=== PATIENT | male | born 1955 | race Caucasian/White ===

== ENCOUNTER 2023-08-06 10:47 | Inpatient (IN) ==
--- OUTSIDE RECORDS SUMMARY | 2023-08-06 10:51 | External Medical Summary | Summary of Care ---
Author Name Unknown Organization [facility] Address [address] [place] [address] Phone [phone] Care Team Providers Care Poly Area Supervisor Name Role Phone Kofi Newsome MD Primary Care Provider [phone] Reason for Visit * Reason Onset Date Comments Medication Refill 06/22/2023 Encounter Details Date Type Department Care Team (Late st Contact Info) Description 06/22/2023 Refill [facility] [address] [place] [address] Kofi Newsome MD [address] [place] [address] Pain, dental Allergies No known active allergiesdocumented as of this encounter (statuses as of 06/23/2023) Medications Medication Sig Dispensed Refills Start Date End Date Status Omeprazole 20 MG Oral Capsule Delayed Release (PriLOSEC) Take 1 Capsule by mouth in the morning and 1 Capsule before bedtime. 0 Active Aspirin 81 MG Oral Tablet Delayed Release Take 1 Tablet by mouth in the morning. 0 Active Fluticasone Propionate 50 MCG/ACT Nasal Suspension Administer 1 [place] into nostril in the morning. 0 Active Zinc 50 MG Oral Tablet Take 1 Tablet by mouth in the morning. 0 Active Calcium 600 MG Oral Tablet Take 1 Tablet by mouth in the morning and 1 Tablet at noon and 1 Tablet in the evening. Take with meals. 0 Active amLODIPine Besylate 5 MG Oral Tablet (Norvasc) Take 1 Tablet by mouth in the morning. 90 Tablet 1 01/10/2023 Active Atorvastatin Calcium 80 MG Oral Tablet (Lipitor) Take 1 Tablet by mouth in the morning. 90 Tablet 1 01/10/2023 Active Chlorthalidone 50 MG Oral Tablet (Hygroton) Take 1 Tablet by mouth in the morning. 90 Tablet 1 01/10/2023 Active Magnesium 500 MG Oral Capsule Take 1 Capsule by mouth in the morning. 90 Capsule 1 01/10/2023 Active Potassium Chloride ER 10 MEQ Oral Tablet Extended Release Take 1 Tablet by mouth in the morning. 90 Tablet 1 01/10/2023 Active Xarelto 20 MG Oral TabletIndications :Atrial fibrillation, unspecified type (HCC) Take 1 Tablet by mouth at bedtime. 100 Tablet 3 05/09/2023 Active Xarelto 20 MG Oral TabletIndications :Atrial fibrillation, unspecified type (HCC) Take 1 Tablet by mouth at bedtime. 10 Tablet 0 05/09/2023 Active Losartan Potassium 50 MG Oral Tablet (Cozaar) Take 1 Tablet by mouth in the morning and 1 Tablet before bedtime. 90 Tablet 2 05/27/2023 Active Amoxicillin-Pot Clavulanate 875-125 MG Oral Tablet (Augmentin)Indica tions:Pain, dental Take 1 Tablet by mouth in the morning and 1 Tablet before bedtime. 20 Tablet 0 06/22/2023 Active Amoxicillin-Pot Clavulanate 875-125 MG Oral Tablet (Augmentin)Indica tions:Pain, dental Take 1 Tablet by mouth in the morning and 1 Tablet before bedtime. Do all this for 10 days. 20 Tablet 0 06/22/2023 Discontinue d(Refill) documented as of this encounter (statuses as of 06/23/2023) Active Problems Problem Noted Date Diagnosed Date Essential (primary) hypertension 06/22/2023 Dyslipidemia, goal LDL below 70 06/22/2023 Old myocardial infarction 06/22/2023 Prediabetes 12/07/2022 Reflux esophagitis 01/08/2004 Tobacco use disorder 05/18/2002 Diaphragmatic hernia Bacterial pneumonia documented as of this encounter (statuses as of 06/23/2023) Social History Tobacco Use Types Packs/Day Years Used Date Smoking Tobacco: Former Cigarettes Smokeless Tobacco: Former Snuff Alcohol Use Standard Drinks/Week Comments No 0 (1 standard drink = 0.6 oz pur e alcohol) Hunger Vital Sign Answer Date Recorded Within the past 12 months, y ou worried that your food would run out before you got the money to buy more. Never true 11/25/19 23 Within the past 12 months, t he food you bought just didn't last and you didn't have money to get more. Never true 11/24/2022 Sex and Gender Information Value Date Recorded Sex Assigned at Male 11/24/2022 1:13 AM EDT Gender Identity Male 11/24/2022 1:13 AM EDT Sexual Orientation Straight 11/24/2022 1: 13 AM EDT Job Start Date Occupation Industry Not on file Not on file Not on file documented as of this encounter Miscellaneous Notes * Telephone Encounter - Ly Kaplan [facility] - 06/23/2023 9:26 AM EST Pending Prescriptions: Disp Refills Amoxicillin-Pot Clavulanate 875-125 MG Ora*20 Tab*0 Sig: Take 1Tablet by mouth in the morning and 1 Tablet before bedtime.Signed Prescriptions: Disp Refills Amoxicillin-Pot Clavulanate 875-125 MG Ora*20 Tab*0 Sig: Take 1 Tablet by mouth in the morning and 1 Tablet before bedtime.Authorizing Provider: KOFI NEWSOMEOrderingUser: PAVITHRA CASTRO * Telephone Encounter - Ly Kaplan [facility] - 06/23/2023 9:25 AM EST Was pt able to get this filled at [facility] * Telephone Encounter - Josefa Zurita CPhT - 06/22/2023 5:35 PM EST Pt calling to request Amoxicillin-Pot Clavulanate 875-125 MG Oral Tablet (Augmentin) . Informed pt that RX is available at their pharmacy. Pt verbalized understanding and stated they will check with their pharmacy regarding this medication. Thank you, Josefa Zurita Annealer Helper [facility] 06/22/2023, 5:35 PM * Telephone Encounter - Jenna Alcantara [facility] - 06/22/2023 4:22 PM EST Pharmacy is having issues with receiving E-scripts. Verbal Rx provided to [facility] for Augmentin. Thank you, Jenna Alcantara, PharmD Clinical Pharmacist [facility] ([facility]) ([facility] 06/22/23 4:22 PM [phone] * Addendum Note - Loly Rutledge CPhT - 06/22/2023 4:21 PM ESTAddended by: LOLY RUTLEDGE on: 06/22/2023 04:21 PM Modules accepted: Orders * Telephone Encounter - Loly Rutledge CPhT - 06/22/2023 4:20 PM EST Jenifer is having computer issues, pt is asking for it to be sent to Mehdi [facility] [address] [address] Pending Prescriptions: Disp Refills Amoxicillin-Pot Clavulanate 875-125 MG Or*20 Tab*0 Sig: Take 1 Tablet by mouth in the morning and 1 Tablet before bedtime. Signed Prescriptions: Disp Refills Amoxicillin-Pot Clavulanate 875-125 MG Ora*20 Tab*0 Sig: Take 1 Tablet by mouth in the morning and 1 Tablet before bedtime. Authorizing Provider: KOFI NEWSOME Ordering User: PAVITHRA CASTRO Last Visit: 06/22/2023 (in office), Visit date not found (telemedicine) 12/21/2023 If no future appointments scheduled, and last appointment is greater than a year ago, please schedule patient for a follow-up appointment Last date the medication was ordered: 06/22/2023 Patient Phone Numbers Labs: Lab Results Component Value Date/Time CREAT 0.8 02/10/2023 04:13 PM POTASSIUM 4.1 02/10/2023 04:13 PM LDLCALC 51 12/06/2022 11:31 AM LDLCALC 131 (H) 01/08/2004 02:29 PM ALT 36 02/10/2023 04:13 PM HGBA1C 6.1 (H) 12/06/2022 11:31 AM * Telephone Encounter - Kourtney Dela Cruz CPhT - 06/22/2023 4:19 PM EST [facility] pharmacy is calling regarding Amoxicillin-Pot Clavulanate 875-125 MG Oral Tablet (Augmentin). Caller states they are having issues with electronic transmission. I reached out to [facility] for verbal approval as requested by caller. Thank you, Margaret Dela Cruz [facility] Power Plant Superintendent II Centralized Clinical Pharmacy Services (CCPS) (Formerly Telepharmacy) 06/22/2023,4:22 PM Electronically signed by Kourtney Dela Cruz [facility] at 06/22/2023 4:22 PM EST * Telephone Encounter - Pavithra Castro [facility] - 06/22/2023 4:08 PM ESTSigned Prescriptions: Disp Refills Amoxicillin-Pot Clavulanate 875-125 MG Ora*20 Tab*0 Sig: Take 1Tablet by mouth in the morning and 1 Tablet before bedtime.Authorizing Provider: KOFI NEWSOME User: PAVITHRA CASTRO * Telephone Encounter - Pavithra Castro RPh - 06/22/2023 4:07 PM EST Pharmacy states they did not receive transmitted script from 06/22/2023. Pharmacist resending again. Thank you, Pavithra Castro [facility] Clinical Pharmacist Centralized Clinical Pharmacy Services (CCPS) (formerly Telepharmacy) 06/22/23 4:07 PM [phone] * Telephone Encounter - Pati Morocho PHARM Tech - 06/22/2023 3:49 PM EST Please resend Rx to [id number] [address] Confirmed pharmacy did not receive original prescription. PHARMACY DID NOT RECEIVE PT IS AT PHARMACY Pending Prescriptions: Disp Refills Amoxicillin-Pot Clavulanate 875-125 MG Or*20 Tab*0 Sig: Take 1 Tablet by mouth in the morning and 1 Tablet before bedtime. Last Visit: 06/22/2023 (in office), Visit date not found (telemedicine) 12/21/2023 If no future appointments scheduled, and last appointment is greater than a year ago, please schedule patient for a follow-up appointment Last date the medication was ordered: Patient Phone Numbers Labs: Lab Results Component Value Date/Time CREAT 0.8 02/10/2023 04:13 PM POTASSIUM 4.1 02/10/2023 04:13 PM LDLCALC 51 12/06/2022 11:31 AM LDLCALC 131 (H) 01/08/2004 02:29 PM ALT 36 02/10/2023 04:13 PM HGBA1C 6.1 (H) 12/06/2022 11:31 AM documented in this encounter Plan of Treatment Upcoming Encounters Date Type Department Care Team (Late st Contact Info) Description 08/11/2023 9:30 AM EDT Imaging Vascular Lab, [facility] 2nd Floor, [place] [address] [facility] [place] [address] 08/11/2023 1:30 PM EDT Office Visit Cardiology, [facility] [address] [facility] [place] [address] Katty Dinero CRNP 132 [facility] [place] [address] 12/21/2023 2:00 PM EDT Office Visit Family [place] [address] [place] [phone] AugustKofi MD [address] [place] [address] 01/13/2024 2:00 PM EDT Cardiac Studies Cardiac Studies, [facility] [address] [facility] [place] [address] 01/18/2024 11:00 AM EDT Cardiac Studies Cardiology, [facility] [address] [facility] [place] [address] [place] [address] [facility] [place] [address] Health Maintenance Due Date Last Done Comments Depression Screening 1969 Albumin/Creatinine Ratio 09/05/1975 DTaP,Tdap,and Td Vaccines (1 - Tdap) 1976 Fecal Occult Blood Test 2002 Sigmoidoscopy 2002 Zoster Vaccines (1 of 2) 09/05/2007 AAA Screening 2022 Pneumococcal Vaccine: 65+ Years (1 of 1 - PCV) 2022 COVID-19 Vaccine (1 - 2022-2 4 season) 2022 Influenza Vaccine (FLU shot) (#1) 2022 HbA1c 12/07/2023 12/06/2022 GFR 02/11/2024 02/10/2023, 12/06/2022 Cologuard 05/04/2025 05/04/2022 Lipid Panel 12/07/2027 12/06/2022, 01/08/2004 Colonoscopy 07/22/2032 07/22/2022 Colorectal Cancer Screening 07/22/2032 GARDASIL-HPV IMMUNIZATION SERIES Aged Out No longer eligible b ased on patient's age to complete this topic Hepatitis B Aged Out No longer eligi ble based on patient's age to complete this topic MENINGOCOCCAL (MENACTRA/MENVEO) Aged Out No longer eligible b ased on patient's age to complete this topic documented as of this encounter Medical Devices Not on filedocumented as of this encounter Visit Diagnoses Diagnosis Pain, dental Unspecified disorder of the teeth and supporting structures documented in this encounter Care Teams Poly Area Supervisor Relationship Specialty Start Date End Date August, Kofi Schulz MD [address] [place] [address] PCP - General Family Medicine 11/30/22 documented as of this encounter
--- OUTSIDE RECORDS SUMMARY | 2023-08-06 10:51 | External Medical Summary | Summary of Care ---
Author Name Unknown Organization [facility] Address [address] [place] [address] Phone [phone] Care Team Providers Care Neonatal Critical Care Nurse Name Role Phone Kofi Newsome MD Primary Care Provider [phone] Reason for Visit * Reason Onset Date Comments Medication Refill 06/22/2023 Encounter Details Date Type Department Care Team (Late st Contact Info) Description 06/22/2023 Refill [facility] [address] [place] [address] Kofi Newsome MD [address] [place] [address] Pain, dental Allergies No known active allergiesdocumented as of this encounter (statuses as of 06/22/2023) Medications Medication Sig Dispensed Refills Start Date End Date Status Omeprazole 20 MG Oral Capsule Delayed Release (PriLOSEC) Take 1 Capsule by mouth in the morning and 1 Capsule before bedtime. 0 Active Aspirin 81 MG Oral Tablet Delayed Release Take 1 Tablet by mouth in the morning. 0 Active Fluticasone Propionate 50 MCG/ACT Nasal Suspension Administer 1 [place] into nostril in the morning. 0 Active [...] as of this encounter (statuses as of 06/22/2023) Active Problems Problem Noted Date Diagnosed Date Essential (primary) hypertension 06/22/2023 Dyslipidemia, goal LDL below 70 06/22/2023 Old myocardial infarction 06/22/2023 Prediabetes 12/07/2022 Reflux esophagitis 01/08/2004 Tobacco use disorder 05/18/2002 Diaphragmatic hernia Bacterial pneumonia documented as of this encounter (statuses as of 06/22/2023) Social History Tobacco Use Types Packs/Day Years [...] as of this encounter Miscellaneous Notes * Addendum Note - Loly Rutledge CPhT - 06/22/2023 4:21 PM ESTAddended by: LOLY RUTLEDGE on: 06/22/2023 04:21 PM Modules accepted: Orders * Telephone Encounter - Loly Rutledge CPhT - 06/22/2023 4:20 PM EST Jenifer is having computer issues, pt is asking for it to be sent to [facility] Please reroute Rx to [facility] Pending Prescriptions: Disp Refills Amoxicillin-Pot Clavulanate 875-125 [...] 12/06/2022 11:31 AM * Telephone Encounter - Pavithra Castro [facility] - 06/22/2023 4:08 PM ESTSigned Prescriptions: Disp Refills Amoxicillin-Pot Clavulanate 875-125 MG Ora*20 Tab*0 Sig: Take 1 Tablet by mouth in the morning and 1 Tablet before bedtime.Authorizing Provider: KOFI NEWSOME User: PAVITHRA CASTRO * Telephone Encounter - Pavithra Castro [facility] - 06/22/2023 4:07 PM EST Pharmacy states they did not receive transmitted script from 06/22/2023. Pharmacist resending again. Thank you, Pavithra Castro [facility] Clinical Pharmacist Centralized Clinical Pharmacy Services (CCPS) (formerly Telepharmacy) 06/22/23 4:07 PM [phone] * Telephone Encounter - Pati Morocho pipe roller - 06/22/2023 3:49 PM EST Please resend Rx to [id number] [address] Confirmed pharmacy did not [...] 08/11/2023 9:30 AM EDT Imaging Vascular Lab, [facility] 2nd [facility] [address] [facility] [place] [address] 08/11/2023 1:30 PM EDT Office Visit Cardiology, [facility] [address] [facility] [place] [address] Katty Dinero CRNP 132 [facility] [place] [address] 12/21/2023 2:00 PM EDT Office Visit [facility] [address] [facility] [phone] Kofi [facility]ome [facility] [address] [facility] [address] 01/13/2024 2:00 PM EDT Cardiac Studies Cardiac Studies, [facility] 132 [facility] [place] [address] 01/18/2024 11:00 AM EDT Cardiac Studies Cardiology, [facility] [address] [facility] [place] [address] [place] [address] [facility] [place] [address] Health Maintenance Due Date Last Done Comments [...] structures documented in this encounter Care Teams Neonatal Critical Care Nurse Relationship Specialty Start Date End Date August, Kofi Schulz [facility] [address] [facility] [address] PCP - General Family Medicine 11/30/22 documented as of this encounter
--- OUTSIDE RECORDS SUMMARY | 2023-08-06 10:51 | External Medical Summary | Summary of Care ---
Author Name Unknown Organization [facility] Address [address] [place] [address] Phone [phone] Care Team Providers Care Vocational Services Specialist Name Role Phone Kofi Newsome MD Primary Care Provider [phone] Reason for Visit * Reason Onset Date Comments Medication Refill 06/22/2023 Encounter Details Date Type Department Care Team (Late st Contact Info) Description 06/22/2023 Refill [facility] [address] [place] [address] Kofi Newsome MD [address] [place] [address] Pain, dental Allergies No known [...] Propionate 50 MCG/ACT Nasal Suspension Administer 1 [place] into nostril in the morning. 0 Active [...] encounter Miscellaneous Notes * Telephone Encounter - Jenan Alcantara [facility] - 06/22/2023 4:22 PM EST Pharmacy is having issues with receiving E-scripts. Verbal Rx provided to [facility] for Augmentin. Thank you, Jenna Alcantara, PharmD Clinical Pharmacist Centralized Clinical Pharmacy Services (CCPS) (formerly Telepharmacy) 06/22/23 4:22 PM [phone] * Addendum Note - Loly Rutledge CPhT - 06/22/2023 4:21 PM ESTAddended by: LOLY RUTLEDGE on: 06/22/2023 04:21 PM Modules accepted: Orders * Telephone Encounter - Loly Rutledge CPhT - 06/22/2023 4:20 PM EST Jenifer is having computer issues, pt is asking for it to be sent to [facility] Please reroute Rx to [facility] [address] Pending Prescriptions: Disp Refills Amoxicillin-Pot [...] Cruz CPhT - 06/22/2023 4:19 PM EST [facility] pharmacy is calling regarding Amoxicillin-Pot Clavulanate 875-125 MG Oral Tablet (Augmentin). Caller states they are having issues with electronic transmission. I reached out to [facility] for verbal approval as requested by caller. Thank you, Margaret Dela Cruz CPhT Undertaker Helper II [facility]ized Clinical Pharmacy Services (CCPS) (Formerly Telepharmacy) 06/22/2023,4:22 PM * Telephone Encounter - Pavithra Castro [facility] - 06/22/2023 4:08 PM ESTSigned Prescriptions: Disp Refills Amoxicillin-Pot Clavulanate 875-125 MG Ora*20 Tab*0 Sig: Take 1 Tablet by mouth in the morning and 1 Tablet before bedtime.Authorizing Provider: KOFI NEWSOMEOrdering User: PAVITHRA CASTRO * Telephone Encounter - Pavithra Castro [facility] - 06/22/2023 4:07 PM EST Pharmacy states they did not receive transmitted script from 06/22/2023. Pharmacist resending again. Thank you, Pavithra Castro [facility] Clinical Pharmacist Centralized Clinical Pharmacy Services (CCPS) (formerly Telepharmacy) 06/22/23 4:07 PM [phone] * Telephone Encounter - Pati Morocho, business technology teacher - 06/22/2023 3:49 PM EST Please [id number] [address] Confirmed pharmacy did not [...] 08/11/2023 9:30 AM EDT Imaging Vascular Lab, [facility] 2nd Floor, [place] 132 [facility] [place] [address] 08/11/2023 1:30 PM EDT Office Visit Cardiology, [facility] [address] Katty Dinero CRNP 132 [facility] [place] [address] 12/21/2023 2:00 PM EDT Office Visit [facility] [address] [place] [phone] AugustKofi MD [address] [place] [address] 01/13/2024 2:00 PM EDT Cardiac Studies Cardiac Studies, [facility] [address] [facility] [address] 01/18/2024 11:00 AM EDT Cardiac Studies Cardiology, [facility] [address] [facility] [address] [facility] [address] Health Maintenance Due Date Last Done Comments [...] structures documented in this encounter Care Teams Vocational Services Specialist Relationship Specialty Start Date End Date August, Kofi Schulz MD [address] [place] [address] PCP - General Family Medicine 11/30/22 documented as of this encounter
--- OUTSIDE RECORDS SUMMARY | 2023-08-06 10:51 | External Medical Summary | Summary of Care ---
Author Name Unknown Organization [facility] Address [address] [place] [address] Phone [phone] Care Team Providers Care Video Technician Name Role Phone Kofi Newsome MD Primary Care Provider [phone] Reason for Visit * Reason Onset Date Comments Medication Refill 06/22/2023 Encounter Details Date Type Department Care Team (Late st Contact Info) Description 06/22/2023 Refill [facility] [address] [place] [address] Kofi Newsome MD [address] [place] [address] Pain, dental Allergies No known [...] Propionate 50 MCG/ACT Nasal Suspension Administer 1 [place] into nostril in the morning. 0 Active [...] encounter Miscellaneous Notes * Telephone Encounter - Jenna Alcantara [facility] - 06/22/2023 4:22 PM EST Pharmacy is having issues with receiving E-scripts. Verbal Rx provided to [facility] for Augmentin. Thank you, Jenna Alcantara, PharmD Clinical Pharmacist Centralized Clinical Pharmacy Services (CCPS) (formerly Telepharmacy) 06/22/23 4:22 PM [phone] * Addendum Note - Loly Rutledge CPhT - 06/22/2023 4:21 PM ESTAddended by: LOLY RUTLEDGE on: 06/22/2023 04:21 PM Modules accepted: Orders * Telephone Encounter - Loly Rutledge CPhT - 06/22/2023 4:20 PM EST Jenifer is having computer issues, pt is asking for it to be sent to [facility] Please reroute Rx to [facility] [address] Pending Prescriptions: Disp Refills [...] Cruz CPhT - 06/22/2023 4:19 PM EST [facility] pharmacy is calling regarding Amoxicillin-Pot Clavulanate 875-125 MG Oral Tablet (Augmentin). Caller states they are having issues with electronic transmission. I reached out to [facility] for verbal approval as requested by caller. Thank you, Margaret Dela Cruz CPhT Radio Aerial Installer II Centralized Clinical Pharmacy Services (CCPS) (Formerly Telepharmacy) 06/22/2023,4:22 PM * Telephone Encounter - Pavithra Castro [facility] - 06/22/2023 4:08 PM ESTSigned Prescriptions: Disp Refills Amoxicillin-Pot Clavulanate 875-125 MG Ora*20 Tab*0 Sig: Take 1 Tablet by mouth in the morning and 1 Tablet before bedtime.Authorizing Provider: KOFI NEWSOMEOrdering User: PAVITHRA CASTRO * Telephone Encounter - Pavithra Castro [facility] - 06/22/2023 4:07 PM EST Pharmacy states they did not receive transmitted script from 06/22/2023. Pharmacist resending again. Thank you, Pavithra Castro [facility] Clinical Pharmacist Centralized Clinical Pharmacy Services (CCPS) (formerly Telepharmacy) 06/22/23 4:07 PM [phone] * Telephone Encounter - Pati Morocho, patient services technician - 06/22/2023 3:49 PM EST [id number] [address] Confirmed pharmacy did [...] 08/11/2023 9:30 AM EDT Imaging Vascular Lab, [facility] 2nd Floor, [place] 132 [facility] [place] [address] 08/11/2023 1:30 PM EDT Office Visit Cardiology, [facility] [address] Katty Dinero CRNP 132 [facility] [place] [address] 12/21/2023 2:00 PM EDT Office Visit [facility] [address] [place] [phone] AugustKofi MD [address] [place] [address] 01/13/2024 2:00 PM EDT Cardiac Studies Cardiac Studies, [facility] [address] [facility] [address] 01/18/2024 11:00 AM EDT Cardiac Studies Cardiology, [facility] [address] [facility] [address] [facility] [address] [facility] [address] Health Maintenance Due Date Last Done Comments [...] structures documented in this encounter Care Teams Video Technician Relationship Specialty Start Date End Date August, Kofi Schulz MD [address] [place] [address] PCP - General Family Medicine 11/30/22 documented as of this encounter
--- OUTSIDE RECORDS SUMMARY | 2023-08-06 10:51 | External Medical Summary | Summary of Care ---
Author Name Unknown Organization [facility] Address [address] [place] [address] Phone [phone] Care Team Providers Care Outpatient Pharmacy Manager Name Role Phone Kofi Newsome MD Primary Care Provider [phone] Reason for Visit * Reason Onset Date Comments Medication Refill 06/22/2023 Encounter Details Date Type Department Care Team (Late st Contact Info) Description 06/22/2023 Refill [facility] [address] [place] [address] Kofi Newsome MD [address] [place] [address] Pain, dental Allergies No known [...] Propionate 50 MCG/ACT Nasal Suspension Administer 1 [place] into nostril in the morning. 0 Active [...] encounter Miscellaneous Notes * Telephone Encounter - Trish Perez PHARM Tech - 06/23/2023 10:17 AM ESTSigned Prescriptions: Disp Refills Amoxicillin-Pot Clavulanate 875-125 MG Ora*20 Tab*0 Sig: Take 1 Tablet by mouth in the morning and 1 Tablet before bedtime.Authorizing Provider: KOFI NEWSOME User: PAVITHRA CASTRO * Telephone Encounter - Trish Perez PHARM Tech - 06/23/2023 10:16 AM EST for pt to verify. Thank you, Trish Perez CPhT Dental Appliance Fixer II [facility] ([facility]) (formerly Telepharmacy) 06/23/2023,10:17 AM * Telephone Encounter - Ly Kaplan [facility] - 06/23/2023 9:26 AM EST Pending Prescriptions: Disp Refills Amoxicillin-Pot Clavulanate 875-125 MG Ora*20 Tab*0 Sig: Take 1Tablet by mouth in the morning and 1 Tablet before bedtime.Signed Prescriptions: Disp Refills Amoxicillin-Pot Clavulanate 875-125 MG Ora*20 Tab*0 Sig: Take 1 Tablet by mouth in the morning and 1 Tablet before bedtime.Authorizing Provider: KOFI NEWSOMEOrderingUser: ESTRADAPAVITHRAN * Telephone Encounter - Ly Kaplan [facility] - 06/23/2023 9:25 AM EST Was pt able to get this filled at [facility] or does he need it resent to [facility]? * Telephone Encounter - Josefa Zurita CPhT - 06/22/2023 5:35 PM EST Pt calling to request Amoxicillin-Pot Clavulanate 875-125 MG Oral Tablet (Augmentin) . Informed pt that RX is available at their pharmacy. Pt verbalized understanding and stated they will check with their pharmacy regarding this medication. Thank you, Josefa Zurita Career Services Assistant [facility] 06/22/2023, 5:35 PM * Telephone Encounter - Jenna Alcantara [facility] - 06/22/2023 4:22 PM EST Pharmacy is having issues with receiving E-scripts. Verbal Rx provided to [facility] for Augmentin. Thank you, Jenna Alcantara, PharmD Clinical Pharmacist [facility] ([facility]) (formerly [facility]) 06/22/23 4:22 PM [phone] * Addendum Note - Loly Rutledge CPhT - 06/22/2023 4:21 PM ESTAddended by: LOLY RUTLEDGE on: 06/22/2023 04:21 PM Modules accepted: Orders * Telephone Encounter - Loly Rutledge CPhT - 06/22/2023 4:20 PM EST Jenifer is having computer issues, pt is asking for it to be sent to Mehdi Please reroute Rx to [facility] [address] Pending Prescriptions: Disp Refills Amoxicillin-Pot [...] Cruz CPhT - 06/22/2023 4:19 PM EST [facility] pharmacy is calling regarding Amoxicillin-Pot Clavulanate 875-125 MG Oral Tablet (Augmentin). Caller states they are having issues with electronic transmission. I reached out to [facility] for verbal approval as requested by caller. Thank you, Margaret Dela Cruz [facility] Assistant Spa Director II [facility] ([facility]) (Formerly Telepharmacy) 06/22/2023,4:22 PM * Telephone Encounter - Pavithra Castro [facility] - 06/22/2023 4:08 PM ESTSigned Prescriptions: Disp Refills Amoxicillin-Pot Clavulanate 875-125 MG Ora*20 Tab*0 Sig: Take 1Tablet by mouth in the morning and 1 Tablet before bedtime.Authorizing Provider: KOFI NEWSOME User: PAVITHRA CASTRO * Telephone Encounter - Pavithra Castro [facility] - 06/22/2023 4:07 PM EST Pharmacy states they did not receive transmitted script from 06/22/2023. Pharmacist resending again. Thank you, Pavithra Castro [facility] Clinical Pharmacist [facility] ([facility]) (formerly Telepharmacy) 06/22/23 4:07 PM [phone] * Telephone Encounter - Pati Morocho hvac design engineer - 06/22/2023 3:49 PM EST Please resend Rx to [id number] Confirmed pharmacy did not [...] 08/11/2023 9:30 AM EDT Imaging Vascular Lab, [facility] [address] [place] [address] 08/11/2023 1:30 PM EDT Office Visit Cardiology, [facility] [address] [place] [address] Katty Dinero CRNP [address] [place] [address] 12/21/2023 2:00 PM EDT [address] [phone] August[facility]ofi MD [address] [facility] [address] 01/13/2024 2:00 PM EDT Cardiac Studies Cardiac Studies, [facility] 132 [facility] [place] [address] 01/18/2024 11:00 AM EDT Cardiac Studies Cardiology, [facility] [place] [address] [place], Pacer [facility] 132 [facility] [place] [address] Health Maintenance Due Date Last Done Comments [...] structures documented in this encounter Care Teams Outpatient Pharmacy Manager Relationship Specialty Start Date End Date August, Kofi Schulz MD [address] [place] [facility] [address] PCP - General Family Medicine 11/30/22 documented as of this encounter
--- OUTSIDE RECORDS SUMMARY | 2023-08-06 10:51 | External Medical Summary | Summary of Care ---
Author Name Unknown Organization [facility] Address [address] [place] [address] Phone [phone] Care Team Providers Care Tire Service Technician Name Role Phone Tristian Dyson MD Primary Care Provider [phone] Reason for Visit * Reason Comments Follow Up F/U s/p a laparoscop ic right inguinal hernia repair with mesh on 03/21/2023 Encounter Details Date Type Department Care Team (Late st Contact Info) Description 04/20/2023 1:00 PM EST Office Visit General Surgery, [facility] 132 [facility] [place] [address] Gómez Jara MD [address] [facility] [place] [address] Postop check* Allergies No known active allergiesdocumented as of this encounter (statuses as of 04/20/2023) Medications Medication Sig Dispensed Refills Start Date End Date Status Omeprazole 20 MG Oral Capsule Delayed Release (PriLOSEC) Take 1 Capsule by mouth in the morning and 1 Capsule before bedtime. 0 Active Aspirin 81 MG Oral Tablet Delayed Release Take 1 Tablet by mouth in the morning. 0 Active Fluticasone Propionate 50 MCG/ACT Nasal Suspension Administer 1 [place] into nostril in the morning. 0 Active [...] the morning. 90 Tablet 1 01/10/2023 Active Losartan Potassium 50 MG Oral Tablet (Cozaar) Take 1 Tablet by mouth in the morning and 1 Tablet before bedtime. 90 Tablet 1 01/10/2023 Active Magnesium 500 MG Oral Capsule Take 1 Capsule by mouth in the morning. 90 Capsule 1 01/10/2023 Active Potassium Chloride ER 10 MEQ Oral Tablet Extended Release Take 1 Tablet by mouth in the morning. 90 Tablet 1 01/10/2023 Active Xarelto 20 MG Oral Tablet Take 1 Tablet by mouth at bedtime. 90 Tablet 1 01/10/2023 Active documented as of this encounter (statuses as of 04/20/2023) Active Problems Problem Noted Date Diagnosed Date Prediabetes 12/07/2022 Reflux esophagitis 01/08/2004 Tobacco use disorder 05/18/2002 Diaphragmatic hernia Bacterial pneumonia documented as of this encounter (statuses as of 04/20/2023) Social History Tobacco Use Types Packs/Day Years [...] on file documented as of this encounter Progress Notes * Gómez Jara MD - 04/20/2023 2:04 PM EST Forrest Pena is s/p a laparoscopic right inguinal hernia repair with mesh on 03/21/2023. Patientis overall doing well. Pain is controlled without any medications. Fever has not been present. He has no wound drainage and has no wound erythema. Patient is slowly resuming normal activities but still refraining from heavy lifting as recommended. PE: There were no vitals taken for this visit. There were no vitals taken for this visit. General: alert, healthy, and no distress Head: Normocephalic, No masses, lesions, tenderness or abnormalities Eye Exam: conjunctiva are pink and non-injected, sclera clear Abdomen: abdomen soft, non-tender, no masses or organomegaly, and incisions well healed Extremities: no edema, no skin discoloration, no clubbing, no cyanosis Skin: skin color, texture, turgor are normal, no rashes or significant lesions Assessment: Forrest Pena is doing well. He is off all restrictions at this time. All questions answered. Plan: follow - up p.r.n. Gómez Jara MD 04/20/2023 documented in this encounter Nursing Notes * Sandie Cutler MED ASSIST - 04/20/2023 12:58 PM EST Chief Complaint Patient presents with Follow Up F/U s/p a laparoscopic right inguinal hernia repair with mesh on 03/21/2023 Verified patient. No pain but some discomfort. documented in this encounter Plan of Treatment Upcoming Encounters Date Type Department Care Team (Late st Contact Info) Description 06/03/2023 11:00 AM EST Office Visit [facility] [address] [place] [address] AugustTristian MD [address] [place] [address] 06/24/2023 2:30 PM EST Office Visit Cardiology, [facility] [address] [facility] [place] [address] Katty Dinero CRNP 132 [facility] [place] [address] 01/13/2024 2:00 PM EDT Cardiac Studies Cardiac Studies, [facility] [place] [address] 01/18/2024 11:00 AM EDT Cardiac Studies Cardiology, [facility] [place] [address] [place], Pacer Clinic [facility] 132 [facility] [place] [address] Health Maintenance Due Date Last Done Comments COVID-19 Vaccine (#1) 03/07/1956 Depression Screening 1969 DTaP,Tdap,and Td Vaccines (1 - Tdap) 1976 Fecal Occult Blood Test 2002 Sigmoidoscopy 2002 Zoster Vaccines (1 of 2) 09/05/2007 AAA Screening 2022 Pneumococcal Vaccine: 65+ Years (1 - PCV) 2022 Influenza Vaccine (FLU shot) (#1) 2022 HbA1c 12/07/2023 12/06/2022 Cologuard 05/04/2025 05/04/2022 Lipid Panel 12/07/2027 [...] as of this encounter Visit Diagnoses Diagnosis Postop check- Primary Follow-up examination, following unspecified surgery documented in this encounter Care Teams Tire Service Technician Relationship Specialty Start Date End Date August, Tristian Schulz MD [address] [place] [address] PCP - General Family Medicine 11/30/22 documented as of this encounter
--- OUTSIDE RECORDS SUMMARY | 2023-08-06 10:51 | External Medical Summary | Summary of Care ---
Author Name Unknown Organization [facility] Address [address] [facility] [address] Phone [phone] Care Team Providers Care Creative Services Writer Name Role Phone Tristian Dyson MD Primary Care Provider [phone] Encounter Details Date Type Department Care Team (Late st Contact Info) Description 07/18/2023 Result Scan Unspecified Department Erwin Burns, DO [address] [place] [address] <No scans attached> Allergies No known active allergiesdocumented as of this encounter (statuses as of 07/18/2023) Medications Medication Sig Dispensed Refills Start Date End Date Status Omeprazole 20 MG Oral Capsule Delayed Release (PriLOSEC) Take 1 Capsule by mouth in the morning and 1 Capsule before bedtime. 0 Active Aspirin 81 MG Oral Tablet Delayed Release Take 1 Tablet by mouth in the morning. 0 Active Fluticasone Propionate 50 MCG/ACT Nasal Suspension Administer 1 [place] into nostril in the morning. 0 Active [...] the morning. 90 Capsule 1 01/10/2023 Active Xarelto 20 MG Oral TabletIndications:A trial fibrillation, unspecified type (HCC) Take 1 Tablet by mouth at bedtime. 100 Tablet 3 05/09/2023 Active Xarelto 20 MG Oral TabletIndications:A trial fibrillation, unspecified type (HCC) Take 1 Tablet by mouth at bedtime. 10 Tablet 0 05/09/2023 Active Losartan Potassium 50 MG Oral Tablet (Cozaar) Take 1 Tablet by mouth in the morning and 1 Tablet before bedtime. 90 Tablet 2 05/27/2023 Active Amoxicillin-Pot Clavulanate 875-125 MG Oral Tablet (Augmentin)Indicati ons:Pain, dental Take 1 Tablet by mouth in the morning and 1 Tablet before bedtime. 20 Tablet 0 06/22/2023 Active Chlorthalidone 50 MG Oral Tablet (Hygroton) Take 1 Tablet by mouth in the morning. 90 Tablet 1 07/06/2023 Active Potassium Chloride ER 10 MEQ Oral Tablet Extended Release Take 1 Tablet by mouth in the morning. 90 Tablet 1 07/06/2023 Active documented as of this encounter (statuses as of 07/18/2023) Active Problems Problem Noted Date Diagnosed Date Essential (primary) hypertension 06/22/2023 Dyslipidemia, goal LDL below 70 06/22/2023 Old myocardial infarction 06/22/2023 Prediabetes 12/07/2022 Reflux esophagitis 01/08/2004 Tobacco use disorder 05/18/2002 Diaphragmatic hernia Bacterial pneumonia documented as of this encounter (statuses as of 07/18/2023) Social History Tobacco Use Types Packs/Day Years [...] on file documented as of this encounter Plan of Treatment Upcoming Encounters Date Type Department Care Team (Late st Contact Info) Description 08/11/2023 9:30 AM EDT Imaging Vascular Lab, [facility] 2nd Floor, [place] [address] [facility] [place] [address] 08/11/2023 1:30 PM EDT Office Visit Cardiology, [facility] [address] [facility] [place] [address] Katty Dinero CRNP 132 [facility] [place] [address] 12/21/2023 2:00 PM EDT Office Visit [facility] [address] [place] [address] AugustTristian MD [address] [place] [address] 01/13/2024 2:00 PM EDT Cardiac Studies Cardiac Studies, [facility] [place] [address] 01/18/2024 11:00 AM EDT Cardiac Studies Cardiology, [facility] [address] [facility] [place] [address] [facility] [place] [address] Health Maintenance Due Date Last Done Comments [...] Not on filedocumented as of this encounter Procedures Procedure Name Priority Date/Time Associated Diagnosis Comments CARDIOLOGY SCANNED RESULT 07/18/2023 documented in this encounter Results * CARDIOLOGY SCANNED RESULT (07/18/2023) 07/18/2023 Erwin Burns DO OTHER documented in this encounter Care Teams Creative Services Writer Relationship Specialty Start Date End Date August, Tristian Schulz MD [address] [place] [address] PCP - General Family Medicine 11/30/22 documented as of this encounter
--- OUTSIDE RECORDS SUMMARY | 2023-08-06 10:51 | External Medical Summary | Summary of Care ---
Author Name Unknown Organization [facility] Address [address] [place] [address] Phone [phone] Care Team Providers Care Biogeographer Name Role Phone Kofi Newsome MD Primary Care Provider [phone] Reason for Visit * Reason Comments Medication Refill Encounter Details Date Type Department Care Team (Late st Contact Info) Description 05/27/2023 Refill [facility] [address] [place] [phone] Kofi Newsome MD [address] [place] [address] Allergies No known active allergiesdocumented as of this encounter (statuses as of 05/27/2023) Medications Medication Sig Dispensed Refills Start Date End Date Status Omeprazole 20 MG Oral Capsule Delayed Release (PriLOSEC) Take 1 Capsule by mouth in the morning and 1 Capsule before bedtime. 0 Active Aspirin 81 MG Oral Tablet Delayed Release Take 1 Tablet by mouth in the morning. 0 Active Fluticasone Propionate 50 MCG/ACT Nasal Suspension Administer 1 [place] into nostril in the morning. 0 Active [...] before bedtime. 90 Tablet 2 05/27/2023 Active Losartan Potassium 50 MG Oral Tablet (Cozaar) Take 1 Tablet by mouth in the morning and 1 Tablet before bedtime. 90 Tablet 1 01/10/2023 4 Discontinue d(Refill) documented as of this encounter (statuses as of 05/27/2023) Active Problems Problem Noted Date Diagnosed Date Prediabetes 12/07/2022 Reflux esophagitis 01/08/2004 Tobacco use disorder 05/18/2002 Diaphragmatic hernia Bacterial pneumonia documented as of this encounter (statuses as of 05/27/2023) Social History Tobacco Use Types Packs/Day Years [...] encounter Miscellaneous Notes * Telephone Encounter - Tate Matias [facility] - 05/27/2023 11:51 AM ESTSigned Prescriptions: Disp Refills Losartan Potassium 50 MG Oral Tablet (Coza*90 Tab*2 Sig: Take 1 Tablet by mouth in the morning and 1 Tablet before bedtime.Authorizing Provider: KOFI NEWSOMEOrderfredy User: TATE MATIAS documented in this encounter Plan of Treatment Upcoming Encounters Date Type Department Care Team (Late st Contact Info) Description 06/03/2023 11:00 AM EST Office Visit [facility] [address] [place] [phone] Kofi Newsome MD [address] [place] [address] 08/11/2023 1:30 PM EDT Office Visit Cardiology, [facility] 132 [facility] [place] [address] Katty Dinero CRNP [address] [place] [address] 01/13/2024 2:00 PM EDT Cardiac Studies Cardiac Studies, [facility] 132 [facility] [place] [address] 01/18/2024 11:00 AM EDT Cardiac Studies Cardiology, [facility] [address] [facility] [place] [address] Kevin Laurents Gallegos [address] [place] [address] Health Maintenance Due Date Last Done Comments [...] Not on filedocumented as of this encounter Care Teams Biogeographer Relationship Specialty Start Date End Date August, Kofi Schulz MD [address] [facility] [place] [place] [address] PCP - General Family Medicine 11/30/22 documented as of this encounter
--- OUTSIDE RECORDS SUMMARY | 2023-08-06 10:51 | External Medical Summary | Summary of Care ---
Author Name Unknown Organization [facility] Address [address] [place] [address] Phone [phone] Care Team Providers Care Scale Tester Name Role Phone Kofi Newsome MD Primary Care Provider [phone] Reason for Visit * Reason Comments Medication Refill Encounter Details Date Type Department Care Team (Late st Contact Info) Description 07/05/2023 Refill [facility] [address] [place] [phone] Kofi Newsome MD [address] [place] [address] Allergies No known active allergiesdocumented as of this encounter (statuses as of 07/06/2023) Medications Medication Sig Dispensed Refills Start Date End Date Status Omeprazole 20 MG Oral Capsule Delayed Release (PriLOSEC) Take 1 Capsule by mouth in the morning and 1 Capsule before bedtime. 0 Active Aspirin 81 MG Oral Tablet Delayed Release Take 1 Tablet by mouth in the morning. 0 Active Fluticasone Propionate 50 MCG/ACT Nasal Suspension Administer 1 [place] into nostril in the morning. 0 Active [...] the morning. 90 Tablet 1 07/06/2023 Active Chlorthalidone 50 MG Oral Tablet (Hygroton) Take 1 Tablet by mouth in the morning. 90 Tablet 1 01/10/2023 4 Discontinue d(Refill) Potassium Chloride ER 10 MEQ Oral Tablet Extended Release Take 1 Tablet by mouth in the morning. 90 Tablet 1 01/10/2023 4 Discontinue d(Refill) documented as of this encounter (statuses as of 07/06/2023) Active Problems Problem Noted Date Diagnosed Date Essential (primary) hypertension 06/22/2023 Dyslipidemia, goal LDL below 70 06/22/2023 Old myocardial infarction 06/22/2023 Prediabetes 12/07/2022 Reflux esophagitis 01/08/2004 Tobacco use disorder 05/18/2002 Diaphragmatic hernia Bacterial pneumonia documented as of this encounter (statuses as of 07/06/2023) Social History Tobacco Use Types Packs/Day Years [...] encounter Miscellaneous Notes * Telephone Encounter - Elias Coughlin [facility] - 07/06/2023 10:32 AM ESTSigned Prescriptions: Disp Refills Chlorthalidone 50 MG Oral Tablet (Hygroton)90 Tab*1 Sig: Take 1 Tablet by mouth in the morning. Authorizing Provider: KOFI NEWSOME Ordering User: ELIAS BENTLEY Potassium Chloride ER 10 MEQ Oral Tablet E*90 Tab*1 Sig: Take 1 Tablet by mouth in the morning. Authorizing Provider: KOFI NEWSOME Ordering User: ELIAS BENTLEY * Telephone Encounter - 07/05/2023 12:15 AM ESTPending Prescriptions: Disp Refills Chlorthalidone 50 MG Oral Tablet (Hygroton)90 Tab*1 Sig: Take 1Tablet by mouth in the morning. Potassium Chloride ER 10 MEQ Oral Tablet E*90 Tab*1 Sig: Take 1 Tablet by mouth in the morning. documented in this encounter Plan of Treatment Upcoming Encounters Date Type Department Care Team (Late st Contact Info) Description 08/11/2023 9:30 AM EDT Imaging Vascular Lab, [facility] 2nd Floor, [place] [address] [place] [address] 08/11/2023 1:30 PM EDT Office Visit Cardiology, [facility] 132 [facility] [place] [address] Katty Dinero CRNP [address] [place] [address] 12/21/2023 2:00 PM EDT Office Visit [facility] [address] [place] [address] AugustKofi MD [address] [place] [address] 01/13/2024 2:00 PM EDT Cardiac Studies Cardiac Studies, [facility] 132 [facility] [place] [address] 01/18/2024 11:00 AM EDT Cardiac Studies Cardiology, [facility] 132 [facility] [place] [address] [facility] 132 [facility] [place] [address] Health Maintenance Due Date Last Done Comments Depression Screening 1969 Albumin/Creatinine Ratio 09/05/1975 DTaP,Tdap,and Td Vaccines (1 - Tdap) 1976 Fecal Occult Blood Test 2002 Sigmoidoscopy 2002 Zoster Vaccines (1 of 2) 09/05/2007 AAA Screening 2022 Pneumococcal Vaccine: 65+ Years (1 of 1 - PCV) 2022 COVID-19 Vaccine ( - 2022-2 4 season) 2022 Influenza Vaccine [...] filedocumented as of this encounter Care Teams Scale Tester Relationship Specialty Start Date End Date August, Kofi Schulz MD [address] [place] [address] PCP - General Family Medicine 11/30/22 documented as of this encounter
--- OUTSIDE RECORDS SUMMARY | 2023-08-06 10:51 | External Medical Summary | Summary of Care ---
Author Name Unknown Organization [facility] Address [address] [place] [address] Phone [phone] Care Team Providers Care Roller Die Cutting Machine Operator Name Role Phone Kofi Newsome MD Primary Care Provider [phone] Reason for Visit * Reason Onset Date Comments Medication Refill 05/09/2023 Encounter Details Date Type Department Care Team (Late st Contact Info) Description 05/09/2023 Refill [facility] [address] [place] [address] Kofi Newsome MD [address] [place] [address] Atrial fibrillation, unspecified type (HCC) Allergies No known active allergiesdocumented as of this encounter (statuses as of 05/09/2023) Medications Medication Sig Dispensed Refills Start Date End Date Status Omeprazole 20 MG Oral Capsule Delayed Release (PriLOSEC) Take 1 Capsule by mouth in the morning and 1 Capsule before bedtime. 0 Active Aspirin 81 MG Oral Tablet Delayed Release Take 1 Tablet by mouth in the morning. 0 Active Fluticasone Propionate 50 MCG/ACT Nasal Suspension Administer 1 [place] into nostril in the morning. 0 Active [...] at bedtime. 10 Tablet 0 05/09/2023 Active Xarelto 20 MG Oral TabletIndications :Atrial fibrillation, unspecified type (HCC) Take 1 Tablet by mouth at bedtime. 10 Tablet 0 04/27/2023 Discontinue d(Refill) documented as of this encounter (statuses as of 05/09/2023) Active Problems Problem Noted Date Diagnosed Date Prediabetes 12/07/2022 Reflux esophagitis 01/08/2004 Tobacco use disorder 05/18/2002 Diaphragmatic hernia Bacterial pneumonia documented as of this encounter (statuses as of 05/09/2023) Social History Tobacco Use Types Packs/Day Years [...] encounter Miscellaneous Notes * Telephone Encounter - Kofi Newsome MD - 05/09/2023 2:08 PM ESTSigned Prescriptions: Disp Refills Xarelto 20 MG Oral Tablet 100 Ta*3 Sig: Take 1 Tablet by mouth at bedtime. Authorizing Provider: KOFI NEWSOME Xarelto 20 MG Oral Tablet 10 Tab*0 Sig: Take 1 Tablet by mouth at bedtime. Authorizing Provider: KOFI NEWSOME * Telephone Encounter - Pati Morocho, calculus tutor - 05/09/2023 10:06 AM EST Did you pend patient's preferred pharmacy and medication before forwarding?yes Pharmacy: [id number] [address] [facility] Pending Prescriptions: Disp Refills Xarelto 20 MG Oral Tablet 100 Ta*3 Sig: Take 1 Tablet by mouth at bedtime. Xarelto 20 MG Oral Tablet 10 Tab*0 Sig: Take 1 Tablet by mouth at bedtime. Last Visit: 11/30/2022 (in office), Visit date not found (telemedicine) Next Visit: 06/03/2023 If no future appointments scheduled, and last appointment is greater than a year ago, please schedule patient for a follow-up appointment Last date the medication was ordered: Is this request for a controlled substance?No Urine Drug Screen:No results found for this or any previous visit. Patient Phone Numbers mobile [phone] Labs: Lab Results Component Value Date/Time CREAT 0.8 02/10/2023 04:13 PM POTASSIUM 4.1 02/10/2023 04:13 PM LDLCALC 51 12/06/2022 11:31 AM LDLCALC 131 (H) 01/08/2004 02:29 PM ALT 36 02/10/2023 04:13 PM HGBA1C 6.1 (H) 12/06/2022 11:31 AM documented in this encounter Plan of Treatment Upcoming Encounters Date Type Department Care Team (Late st Contact Info) Description 06/03/2023 11:00 AM EST Office Visit [facility] [address] [place] [address] August, Kofi Schulz MD [address] [place] [address] 08/11/2023 1:30 PM EDT Office Visit Cardiology, [facility] [place] [address] Katty Dinero CR[facility] [address] 01/13/2024 2:00 PM EDT Cardiac Studies Cardiac Studies, [facility] [place] [address] 01/18/2024 11:00 AM EDT Cardiac Studies Cardiology, [facility] [place] [address] [facility] 132 [facility] [place] [address] Health Maintenance Due Date Last Done Comments [...] as of this encounter Visit Diagnoses Diagnosis Atrial fibrillation, unspecified type (HCC) documented in this encounter Care Teams Roller Die Cutting Machine Operator Relationship Specialty Start Date End Date August, Kfoi Schulz MD [address] [place] [address] PCP - General Family Medicine 11/30/22 documented as of this encounter
--- OUTSIDE RECORDS SUMMARY | 2023-08-06 10:51 | External Medical Summary | Summary of Care ---
Author Name Unknown Organization [facility] [address] [facility] [address] Phone [phone] Care Team Providers Care Oil And Gas Specialist Name Role Phone Tristian Dyson MD Primary Care Provider [phone] Encounter Details Date Type Department Care Team (Late st Contact Info) Description 06/23/2023 Orders Only PATIENT PORTAL DO NOT DELETE THIS DEPT USED BY [place] [address] Allergies No known active allergiesdocumented as of [...] Propionate 50 MCG/ACT Nasal Suspension Administer 1 [place] into nostril in the morning. 0 Active [...] before bedtime. 20 Tablet 0 06/22/2023 Active documented as of this encounter (statuses [...] 08/11/2023 9:30 AM EDT Imaging Vascular Lab, [facility] 2nd Floor, [place] 132 [facility] [place] [address] 08/11/2023 1:30 PM EDT Office Visit Cardiology, [facility] 132 [facility] [place] [address] Katty Dinero CRNP [address] [place] [address] 12/21/2023 2:00 PM EDT Office Visit [facility] [address] [place] [address] AugustTristian MD [address] [place] [address] 01/13/2024 2:00 PM EDT Cardiac Studies Cardiac Studies, [facility] 132 [facility] [place] [address] 01/18/2024 11:00 AM EDT Cardiac Studies Cardiology, [facility] 132 [facility] [place] [address] [facility] 132 [facility] [place] [address] Health Maintenance Due Date Last Done Comments [...] filedocumented as of this encounter Care Teams Oil And Gas Specialist Relationship Specialty Start Date End Date August, Tristian Schulz MD [address] [facility] [place] [address] PCP - General Family Medicine 11/30/22 documented as of this encounter
--- OUTSIDE RECORDS SUMMARY | 2023-08-06 10:51 | External Medical Summary | Summary of Care ---
Author Name Unknown Organization [facility] Address [address] [place] [address] Phone [phone] Care Team Providers Care Rock Crushing Machine Operator Name Role Phone Kofi Newsome MD Primary Care Provider [phone] Reason for Visit * Reason Onset Date Comments Med Request 04/27/2023 Encounter Details Date Type Department Care Team (Late st Contact Info) Description 04/27/2023 Refill [facility] [address] [place] [address] Kofi Newsome MD [address] [place] [address] Atrial fibrillation, unspecified type (HCC)* Allergies No known active allergiesdocumented as of this encounter (statuses as of 04/27/2023) Medications Medication Sig Dispensed Refills Start Date End Date Status Omeprazole 20 MG Oral Capsule Delayed Release (PriLOSEC) Take 1 Capsule by mouth in the morning and 1 Capsule before bedtime. 0 Active Aspirin 81 MG Oral Tablet Delayed Release Take 1 Tablet by mouth in the morning. 0 Active Fluticasone Propionate 50 MCG/ACT Nasal Suspension Administer 1 [place] into nostril in the morning. 0 Active [...] mouth at bedtime. 10 Tablet 0 04/27/2023 Active Xarelto 20 MG Oral Tablet Take 1 Tablet by mouth at bedtime. 90 Tablet 1 01/10/2023 Discontinue d(Refill) documented as of this encounter (statuses as of 04/27/2023) Active Problems Problem Noted Date Diagnosed Date Prediabetes 12/07/2022 Reflux esophagitis 01/08/2004 Tobacco use disorder 05/18/2002 Diaphragmatic hernia Bacterial pneumonia documented as of this encounter (statuses as of 04/27/2023) Social History Tobacco Use Types Packs/Day Years [...] Telephone Encounter - Kofi Newsome MD - 04/27/2023 3:50 PM ESTSigned Prescriptions: Disp Refills Xarelto 20 MG Oral Tablet 10 Tab*0 Sig: Take 1 Tablet by mouth at bedtime.Authorizing Provider: KOFI NEWSOME * Telephone Encounter - Magnolia aBrrera LPN - 04/27/2023 2:08 PM EST Pt calling, he is running low on his xarelto, he has enough until 04/29. The mail order is not sending rx until the beginning of the year. He is inquiring if he could get a few tabs sent to local pharm to get him through until mail order is received. Order pending. documented in this encounter Plan of Treatment Upcoming Encounters Date Type Department Care Team (Late st Contact Info) Description 06/03/2023 11:00 AM EST Office Visit [address] [phone] Kofi Newsome MD [address] [place] [address] 06/24/2023 2:30 PM EST Office Visit Cardiology, [facility] [place] [address] Katty Dinero CRNP [facility] [address] 01/13/2024 2:00 PM EDT Cardiac Studies Cardiac Studies, [facility] 132 [facility] [place] [address] 01/18/2024 11:00 AM EDT Cardiac Studies Cardiology, [facility] 132 [facility] [place] [address] [place] 132 [facility] [place] [address] Health Maintenance Due Date Last Done Comments [...] Visit Diagnoses Diagnosis Atrial fibrillation, unspecified type (HCC)- Primary documented in this encounter Care Teams Rock Crushing Machine Operator Relationship Specialty Start Date End Date August, Kofi Schulz [facility] [address] [facility] [address] PCP - General Family Medicine 11/30/22 documented as of this encounter
--- OUTSIDE RECORDS SUMMARY | 2023-08-06 10:51 | External Medical Summary | Summary of Care ---
Author Name Unknown Organization [facility] Address [address] [place] [address] Phone [phone] Care Team Providers Care Identity Management Consultant Name Role Phone Kofi Newsome MD Primary Care Provider [phone] Reason for Visit * Reason Onset Date Comments Medication Refill 06/22/2023 Encounter Details Date Type Department Care Team (Late st Contact Info) Description 06/22/2023 Refill [facility] [address] [place] [address] Kofi Newsome MD [address] [place] [address] Pain, dental Allergies No known [...] Propionate 50 MCG/ACT Nasal Suspension Administer 1 [place] into nostril in the morning. 0 Active [...] encounter Miscellaneous Notes * Telephone Encounter - Josefa Zurita CPhT - 06/22/2023 5:35 PM EST Pt calling to request Amoxicillin-Pot Clavulanate 875-125 MG Oral Tablet (Augmentin) . Informed pt that RX is available at their pharmacy. Pt verbalized understanding and stated they will check with their pharmacy regarding this medication. Thank you, Josefa Zurita Pattern Ruler [facility] 06/22/2023, 5:35 PM * Telephone Encounter - Jenna Alcantara [facility] - 06/22/2023 4:22 PM EST Pharmacy is having issues with receiving E-scripts. Verbal Rx provided to [facility] for Augmentin. Thank you, Jenna Alcantara, PharmD Clinical Pharmacist [facility] ([facility]) (formerly [facility]) 06/22/23 4:22 PM [phone] * Addendum Note - Loly Rutledge CPhT - 06/22/2023 4:21 PM ESTAddended by: LOLY RUTLEDGE on: 06/22/2023 04:21 PM Modules accepted: Orders * Telephone Encounter - Loly Rutledge CPhT - 06/22/2023 4:20 PM EST Jenifer is having computer issues, pt is asking for it to be sent to [facility] Please reroute Rx to [facility] [address] [address] [address]. Pending Prescriptions: Disp Refills Amoxicillin-Pot [...] Cruz CPhT - 06/22/2023 4:19 PM EST [facility] pharmacy is calling regarding Amoxicillin-Pot Clavulanate 875-125 MG Oral Tablet (Augmentin). Caller states they are having issues with electronic transmission. I reached out to [facility] for verbal approval as requested by caller. Thank you, Margaret Dela Cruz CPhT Machine Stacker II [facility] Clinical Pharmacy Services ([facility]PS) (Formerly [...] Services (CCPS) (formerly Telepharmacy) 06/22/23 4:07 PM [phone] * Telephone Encounter - Pati Morocho tung nut grower - 06/22/2023 3:49 PM EST [id number] [address] Confirmed pharmacy did not [...] 08/11/2023 9:30 AM EDT Imaging Vascular Lab, [facility] 2nd Floor, [place] 132 [facility] [place] [address] 08/11/2023 1:30 PM EDT Office Visit Cardiology, [facility] [address] [facility] [place] [address] Katty Dinero CRNP [address] [place] [address] 12/21/2023 2:00 PM EDT Office Visit [facility] [address] [place] [phone] Kofi Newsome MD [address] [place] [address] 01/13/2024 2:00 PM EDT Cardiac Studies Cardiac Studies, [facility] 132 [facility] [place] [address] 01/18/2024 11:00 AM EDT Cardiac Studies Cardiology, [facility] 132 [facility] [place] [address] Kevin [facility] [address] [place] [address] Health Maintenance Due Date Last Done Comments [...] structures documented in this encounter Care Teams Identity Management Consultant Relationship Specialty Start Date End Date August, Kofi Schulz MD [address] [facility] [place] [address] PCP - General Family Medicine 11/30/22 documented as of this encounter
--- OUTSIDE RECORDS SUMMARY | 2023-08-06 10:51 | External Medical Summary | Summary of Care ---
Author Name Unknown Organization [facility] Address [address] [place] [address] Phone [phone] Care Team Providers Care Nuclear Unit Operator Name Role Phone Kofi Newsome MD Primary Care Provider [phone] Reason for Visit * Reason Onset Date Comments Medication Refill 06/22/2023 Encounter Details Date Type Department Care Team (Late st Contact Info) Description 06/22/2023 Refill [facility] [address] [place] [address] Kofi Newsome MD [address] [place] [address] Pain, dental Allergies No known [...] Propionate 50 MCG/ACT Nasal Suspension Administer 1 [place] into nostril in the morning. 0 Active [...] Notes * Telephone Encounter - Jenna Alcantara [facility] - 06/22/2023 4:22 PM EST Pharmacy is having issues with receiving E-scripts. Verbal Rx provided to [facility] for Augmentin. Thank you, Jenna Alcantara, PharmD Clinical Pharmacist [facility] Pharmacy Services ([facility]PS) (formerly Telepharmacy) 06/22/23 4:22 PM [phone] * Addendum Note - Loly Rutledge CPhT - 06/22/2023 4:21 PM ESTAddended by: LOLY RUTLEDGE on: 06/22/2023 04:21 PM Modules accepted: Orders * Telephone Encounter - Loly Rutledge CPhT - 06/22/2023 4:20 PM EST Jenifer is having computer issues, pt is asking for it to be sent to Mehdi Please reroute Rx to [facility] [address]. Pending Prescriptions: Disp Refills [...] Cruz CPhT - 06/22/2023 4:[address] [facility] pharmacy is calling regarding Amoxicillin-Pot Clavulanate 875-125 MG Oral Tablet (Augmentin). Caller states they are having issues with electronic transmission. [facility] for verbal approval as requested by caller. Thank you, Margaret Dela Cruz CPhT Enterprise Architect Manager II [facility] Pharmacy Services ([facility]PS) (Formerly Telepharmacy) 06/22/2023,4:22 PM * Telephone Encounter - Pavithra Castro [facility] - 06/22/2023 4:08 PM ESTSigned Prescriptions: Disp Refills Amoxicillin-Pot Clavulanate 875-125 MG Ora*20 Tab*0 Sig: Take 1 Tablet by mouth in the morning and 1 Tablet before bedtime.Authorizing Provider: KOFI NEWSOMEOrdering User: PAVITHRA CASTRO * Telephone Encounter - Pavithra Castro [facility] - 06/22/2023 4:07 PM EST Pharmacy states they did not receive transmitted script from 06/22/2023. Pharmacist resending again. Thank you, Pavithra Castro [facility] Clinical Pharmacist Centralized Clinical Pharmacy Services (CCPS) (formerly Telepharmacy) 06/22/23 4:07 PM [phone] * Telephone Encounter - Pati Morocho, supervising bailiff - 06/22/2023 3:49 PM EST [id number] [address] Confirmed pharmacy did not [...] 08/11/2023 9:30 AM EDT Imaging Vascular Lab, [facility] 2nd Floor, [place] 132 [facility] [place] [address] 08/11/2023 1:30 PM EDT Office Visit Cardiology, [facility] [place] [address] Katty Dinero CRNP 132 [facility] [place] [address] 12/21/2023 2:00 PM EDT Office Visit [facility] [address] [place] [phone] AugustKofi MD [address] [place] [address] 01/13/2024 2:00 PM EDT Cardiac Studies Cardiac Studies, [facility] [place] [address] 01/18/2024 11:00 AM EDT Cardiac Studies Cardiology, [facility] [place] [address] [facility] [place] [facility] [address] Health Maintenance Due Date Last Done Comments [...] structures documented in this encounter Care Teams Nuclear Unit Operator Relationship Specialty Start Date End Date August, Kofi Schulz MD [address] [place] [address] PCP - General Family Medicine 11/30/22 documented as of this encounter
--- OUTSIDE RECORDS SUMMARY | 2023-08-06 10:51 | External Medical Summary | Summary of Care ---
Author Name Unknown Organization [facility] Address [address] [place] [address] Phone [phone] Care Team Providers Care Workers Compensation Attorney Name Role Phone Tristian Dyson MD Primary Care Provider [phone] Reason for Visit * Reason Comments Re-Check Encounter Details Date Type Department Care Team (Late st Contact Info) Description 06/22/2023 2:20 PM EST Office Visit [facility] [address] [place] [address] Tristian Dyson MD [address] [place] [address] History of RI (myocardial infarction)*; S/P placement of cardiac pacemaker; Atrial fibrillation, unspecified type (HCC); Hiatal hernia; Prediabetes; History of smoking; Pain, dental; Essential (primary) hypertension; Dyslipidemia, goal LDL below 70; Old myocardial infarction Allergies No known active allergiesdocumented as of [...] Propionate 50 MCG/ACT Nasal Suspension Administer 1 [place] into nostril in the morning. 0 Active [...] 1 01/10/2023 Active Xarelto 20 MG Oral TabletIndications: Atrial fibrillation, unspecified type (HCC) Take 1 Tablet by mouth at bedtime. 100 Tablet 3 05/09/2023 Active Xarelto 20 MG Oral TabletIndications: Atrial fibrillation, unspecified type (HCC) Take 1 Tablet by mouth at bedtime. 10 Tablet 0 05/09/2023 Active Losartan Potassium 50 MG Oral Tablet (Cozaar) Take 1 Tablet by mouth in the morning and 1 Tablet before bedtime. 90 Tablet 2 05/27/2023 Active Amoxicillin-Pot Clavulanate 875-125 MG Oral Tablet (Augmentin)Indicat ions:Pain, dental Take 1 Tablet by mouth in the morning and 1 Tablet before bedtime. Do all this for 10 days. 20 Tablet 0 06/22/2023 07/02/2023 Active documented as of this encounter (statuses [...] on file documented as of this encounter Last Filed Vital Signs Vital Sign Reading Time Taken Comments Blood Pressure 140/78 06/22/2023 2:22 PM EST Pulse 61 06/22/2023 2:22 PM EST Temperature 36.8 C (98.2 F) 06/22/2023 2:22 PM ES T Respiratory Rate 16 06/22/2023 2:22 PM EST Oxygen Saturation 99% 06/22/2023 2:22 PM EST Inhaled Oxygen Concentration - - Weight 123.6 kg (272 lb 6.4 oz) 06/22/2023 2:22 PM EST Height - - Body Mass Index 40.23 11/30/2022 10:49 AM EDT documented in this encounter Progress Notes * Tristian Dyson MD - 06/22/2023 2:33 PM EST Images from the original note were not included. Assessment and Plan 1. History of RI (myocardial infarction) Now following with Cardiology. Pacemaker in place. Continues Xarelto. Not on beta-dunia due to history of bradycardia. Repeat echocardiogram in 1 year per Cardiology recommendations. Denies chest pain. - LIPID PANEL WITH DIRECT LDL IF TG IS HIGH; Future 2. S/P placement of cardiac pacemaker 3. Atrial fibrillation, unspecified type (HCC) Anticoagulated on Xarelto. 4. Hiatal hernia Patient declines referral to GI for further evaluation. 5. Prediabetes A1c 6.1. Repeat prior to next appointment. - HEMOGLOBIN A1C; Future - COMPREHENSIVE METABOLIC PANEL; Future 6. History of smoking - US AAA SCREEN, VASCULAR LAB; Future 7. Pain, dental Treat with Augmentin. Recommend he establishes with dentistry in the local area. - Amoxicillin-Pot Clavulanate 875-125 MG Oral Tablet (Augmentin); Take 1 Tablet by mouth in the morning and 1 Tablet before bedtime. Do all this for 10 days. Dispense: 20 Tablet; Refill: 0 8. Essential (primary) hypertension BP borderline high today. Patient reports appropriate numbers at home. Continue losartan, amlodipine, chlorthalidone. 9. Dyslipidemia, goal LDL below 70 Excellent lipid panel. Continue atorvastatin. 10. Old myocardial infarction Follow up with cards. Wrap-Up Follow up in 6 months. History of Present Illness The patient is a 67 year old male with past medical history of prediabetes, GERD who presents for follow up. Patient presents for six-month follow up. Since last visit he was established with Cardiology in November 2022. He has a history of paroxysmal atrial fibrillation currently anticoagulated on Xarelto. He also has a history of NSTEMI in fall 2020. He had a dual-chamber Medtronic pacemaker placed in September 2021 after having profound bradycardia. No changes were made to medications by Cardiology. Echocardiogram was obtained which showed normal ejection fraction. Plan to repeat an echocardiogram and a year. He follows up with Cardiology in July. Patient also underwent inguinal hernia repair with surgery. Doing well from that standpoint at thistime. Patient also underwent colonoscopy given an abnormal screening test in [place] prior to moving back to the area. He had 2 polyps removed. Five year follow up seems appropriate given 2 polyps were removed. I do not see specific documentation of this. Patient reports he has dental pain. He has very poor dentition with numerous broken teeth and at least 1 cavity that is visible. He was not follow up with dentistry currently. Patient has a history of multiple pack per day smoking most recently in the . He was 67 and qualifies for AAA screening. He was agreeable. Physical Exam Vitals: 06/22/23 1422 Temp: 36.8 C (98.2 F) Pulse: 61 Resp: 16 SpO2: 99% BP: 140/78 Physical Exam Physical Exam Vitals reviewed. Constitutional: General: He is not in acute distress. HENT: Mouth/Throat: Comments: Very poor dentition. Cardiovascular: Rate and Rhythm: Normal rate and regular rhythm. Heart sounds: No murmur heard. Pulmonary: Effort: Pulmonary effort is normal. No respiratory distress. Breath sounds: Normal breath sounds. No wheezing. Musculoskeletal: Cervical back: Neck supple. Lymphadenopathy: Cervical: No cervical adenopathy. Neurological: General: No focal deficit present. Mental Status: He is alert. Time: I spent a total of 40-54 minutes (exact time 40 mins) on the date of service in preparation, delivery, and documentation of the care provided to the patient excluding any time spent in the performance of separately billed services. This note has been completed in part utilizing [employer] Speech Voice Recognition Software. Due to technical limitations of the software, grammatical errors, random word insertions, prounoun errors, and incomplete sentences may occur. Any formal questions or concerns about the content, text, or information contained within the body of this dictation should be directly addressed to the provider for clarification. documented in this encounter Nursing Notes * Sharyn Mederos LPN - 06/22/2023 2:22 PM EST 6 month return Has been dealing with a terrible toothache Sore throat & cough - on & off for 2 weeks documented in this encounter Plan of Treatment Upcoming Encounters Date Type Department Care Team (Late st Contact Info) Description 08/11/2023 9:30 AM EDT [facility] [address] [facility] [place] [address] 08/11/2023 1:30 PM EDT Office Visit Card[facility], [facility] [address] Katty Dinero CRNP [facility] [place] [address] 12/21/2023 2:00 PM EDT Office Visit [facility] [address] [place] [phone] Tristian Dyson MD [address] [place] [address] 01/13/2024 2:00 PM EDT Cardiac Studies Cardiac Studies, [facility] 132 [facility] [place] [address] 01/18/2024 11:00 AM EDT Cardiac Studies Cardiology, [facility] 132 [facility] [place] [address] [place] 132 [facility] [place] [address] Scheduled Orders Name Type Priority Associated Diagnoses Orde r Schedule HEMOGLOBIN A1C Lab Routine Prediabetes Expected: 06/22/2023 (Approximate), Expires: 06/21/2024 LIPID PANEL WITH DIRECT LDL IF TG IS HIGH Lab Routine History of RI (myocardial infarction) Expected: 06/22/2023, Expires: 06/22/2024 COMPREHENSIVE METABOLIC PANEL Lab Routine Prediabetes Expected: 06/22/2023 (Approximate), Expires: 06/21/2024 AAA SCREEN, VASCULAR LAB Medical Imaging Routine History of smoking Expected: 06/22/2023, Expires: 07/20/2024 Health Maintenance Due Date Last Done Comments [...] as of this encounter Visit Diagnoses Diagnosis History of RI (myocardial infarction)- Primary Old myocardial infarction S/P placement of cardiac pacemaker Cardiac pacemaker in situ Atrial fibrillation, unspecified type (HCC) Hiatal hernia Diaphragmatic hernia without mention of obstruction or gangrene Prediabetes Other abnormal glucose History of smoking Personal history of tobacco use, presenting hazards to health Pain, dental Unspecified disorder of the teeth and supporting structures Essential (primary) hypertension Unspecified essential hypertension Dyslipidemia, goal LDL below 70 Other and unspecified hyperlipidemia Old myocardial infarction documented in this encounter Care Teams Workers Compensation Attorney Relationship Specialty Start Date End Date August, Tristian Schulz MD [address] [place] [address] PCP - General Family Medicine 11/30/22 documented as of this encounter
--- OUTSIDE RECORDS SUMMARY | 2023-08-06 10:52 | External Medical Summary | Summary of Care ---
Author Name Unknown Organization [facility] Address [address] [facility] [address] Phone [phone] Care Team Providers Care Retail Advertising Account Executive Name Role Phone Tristian Dyson MD Primary Care Provider [phone] Encounter Details Date Type Department Care Team (Late st Contact Info) Description 03/25/2023 Result Scan Unspecified Department Erwin Burns, DO [address] [place] [address] <No scans attached> Allergies No known active allergiesdocumented as of this encounter (statuses as of 03/25/2023) Medications Medication Sig Dispensed Refills Start Date End Date Status Omeprazole 20 MG Oral Capsule Delayed Release (PriLOSEC) Take 1 Capsule by mouth in the morning and 1 Capsule before bedtime. 0 Active Aspirin 81 MG Oral Tablet Delayed Release Take 1 Tablet by mouth in the morning. 0 Active Fluticasone Propionate 50 MCG/ACT Nasal Suspension Administer 1 [place] into nostril in the morning. 0 Active [...] as of this encounter (statuses as of 03/25/2023) Active Problems Problem Noted Date Diagnosed Date Prediabetes 12/07/2022 Reflux esophagitis 01/08/2004 Tobacco use disorder 05/18/2002 Diaphragmatic hernia Bacterial pneumonia documented as of this encounter (statuses as of 03/25/2023) Social History Tobacco Use Types Packs/Day Years [...] Care Team (Late st Contact Info) Description 04/06/2023 10:45 AM EST Office Visit General Surgery, [facility] [address] [place] [address] Gómez Jara MD [address] [place] [address] 06/03/2023 11:00 AM EST Office Visit [facility] [address] [place] [facility] [phone] AugustTristian MD [address] [place] [address] 06/24/2023 2:30 PM EST Office Visit Cardiology, [facility] [address] Katty Dinero CRNP [facility] [place] [address] 01/13/2024 2:00 PM EDT Cardiac Studies Cardiac Studies, [facility] [place] [address] 01/18/2024 11:00 AM EDT Cardiac Studies Cardiology, [facility] [address] [facility] [place] [address] Health Maintenance Due Date Last Done Comments [...] Date/Time Associated Diagnosis Comments CARDIOLOGY SCANNED RESULT 03/25/2023 documented in this encounter Results * CARDIOLOGY SCANNED RESULT (03/25/2023) 03/25/2023 Erwin Burns DO OTHER documented in this encounter Care Teams Retail Advertising Account Executive Relationship Specialty Start Date End Date August, Tristian Schulz MD [address] [place] [address] PCP - General Family Medicine 11/30/22 documented as of this encounter
--- OUTSIDE RECORDS SUMMARY | 2023-08-06 10:52 | External Medical Summary | Summary of Care ---
Author Name Unknown Organization [facility] Address [address] [place] [address] Phone [phone] Care Team Providers Care Contact Manager Name Role Phone Tristian Dyson MD Primary Care Provider [phone] Reason for Visit * Reason Onset Date Comments Advice 04/15/2023 Encounter Details Date Type Department Care Team (Late st Contact Info) Description 04/15/2023 Telephone [facility] [address] [place] [address] Tristian Dsyon MD [address] [place] [address] Advice Allergies No known active allergiesdocumented as of this encounter (statuses as of 04/15/2023) Medications Medication Sig Dispensed Refills Start Date End Date Status Omeprazole 20 MG Oral Capsule Delayed Release (PriLOSEC) Take 1 Capsule by mouth in the morning and 1 Capsule before bedtime. 0 Active Aspirin 81 MG Oral Tablet Delayed Release Take 1 Tablet by mouth in the morning. 0 Active Fluticasone Propionate 50 MCG/ACT Nasal Suspension Administer 1 [place] into nostril in the morning. 0 Active [...] as of this encounter (statuses as of 04/15/2023) Active Problems Problem Noted Date Diagnosed Date Prediabetes 12/07/2022 Reflux esophagitis 01/08/2004 Tobacco use disorder 05/18/2002 Diaphragmatic hernia Bacterial pneumonia documented as of this encounter (statuses as of 04/15/2023) Social History Tobacco Use Types Packs/Day Years [...] encounter Miscellaneous Notes * Telephone Encounter - Sapna Junior PHARM Tech - 04/15/2023 10:53 AM EST Pt returning a call from phone number [phone]. Pt not sure who was trying to reach him. I do not see an encounter for a telephone call to Pt. Pt will await for a call back. Thank you, Sapna Junior Tavern Operator [facility] (Former[facility]) 04/15/2023,10:55 AM documented in this encounter Plan of Treatment Upcoming Encounters Date Type Department Care Team (Late st Contact Info) Description 04/20/2023 1:00 PM EST Office Visit General Surgery, [facility] 132 [facility] [place] [address] Gómez Jara MD [address] [place] [address] 06/03/2023 11:00 AM EST Office Visit [facility] [address] [place] [address] Tristian Dyson MD [address] [place] [address] 06/24/2023 2:30 PM EST Office Visit Cardiology, [facility] 132 [facility] [place] [address] Katty Dinero CRNP 132 [facility] [place] [address] 01/13/2024 2:00 PM EDT Cardiac Studies Cardiac Studies, [facility] [address] [facility] [place] [address] 01/18/2024 11:00 AM EDT Cardiac Studies Cardiology, [facility] [address] [facility] [place] [address] [facility] [address] [facility] [place] [address] Health Maintenance Due Date Last Done Comments [...] filedocumented as of this encounter Care Teams Contact Manager Relationship Specialty Start Date End Date August, Tristian Schulz MD [address] [place] [address] PCP - General Family Medicine 11/30/22 documented as of this encounter
--- OUTSIDE RECORDS SUMMARY | 2023-08-06 10:52 | External Medical Summary | Summary of Care ---
Author Name Unknown Organization [facility] Address [address] [place] [address] Phone [phone] Care Team Providers Care Wrapping Machine Tender Name Role Phone Tristian Dyson MD Primary Care Provider [phone] Reason for Visit * Reason Comments Post-Op Post op 03/21/2023 R Encounter Details Date Type Department Care Team (Late st Contact Info) Description 04/06/2023 10:45 AM EST Office Visit General Surgery, [facility] 132 [facility] [place] [address] Gómez Jara MD 132 [facility] [place] [address] Postop check* Allergies No known active allergiesdocumented as of this encounter (statuses as of 04/06/2023) Medications Medication Sig Dispensed Refills Start Date End Date Status Omeprazole 20 MG Oral Capsule Delayed Release (PriLOSEC) Take 1 Capsule by mouth in the morning and 1 Capsule before bedtime. 0 Active Aspirin 81 MG Oral Tablet Delayed Release Take 1 Tablet by mouth in the morning. 0 Active Fluticasone Propionate 50 MCG/ACT Nasal Suspension Administer 1 [place] into nostril in the morning. 0 Active [...] as of this encounter (statuses as of 04/06/2023) Active Problems Problem Noted Date Diagnosed Date Prediabetes 12/07/2022 Reflux esophagitis 01/08/2004 Tobacco use disorder 05/18/2002 Diaphragmatic hernia Bacterial pneumonia documented as of this encounter (statuses as of 04/06/2023) Social History Tobacco Use Types Packs/Day Years [...] Progress Notes * Gómez Jara MD - 04/06/2023 10:46 AM EST Forrest Pena is s/p a laparoscopic [...] non-tender, no masses or organomegaly, and incisions healing well without erythema discharge Extremities: no edema, no skin discoloration, no clubbing, no cyanosis Skin: skin color, texture, turgor are normal, no rashes or significant lesions Assessment: Forrest Pena is doing well. We discussed continued weight lifting restrictions for afull 4-6 weeks after surgery. All questions answered. Plan: follow - up 4 weeks Gómez Jara MD 04/06/2023 10:46 AM documented in this encounter Nursing Notes * Che Davis LPN - 04/06/2023 10:28 AM EST Chief Complaint Patient presents with Post-Op Post op 03/21/2023 [facility] Patient states he did have pain, in the last four days it has subsided to a discomfort. Incisions look good. Not inflamed, no seeping. documented in this encounter Plan of Treatment Upcoming Encounters Date Type Department Care Team (Late st Contact Info) Description 04/20/2023 11:30 AM EST Office Visit General Surgery, [facility] [address] [place] [address] Gómez Jara MD [address] [place] [address] 06/03/2023 11:00 AM EST Office Visit [facility] [address] [place] [facility] [place] [phone] AugustTristian MD [address] [place] [address] 06/24/2023 2:30 PM EST Office Visit Cardiology, [facility] [address] Katty Dinero CRNP [facility] [address] 01/13/2024 2:00 PM EDT Cardiac Studies Cardiac Studies, [facility] [address] 01/18/2024 11:00 AM EDT Cardiac Studies Cardiology, [facility] [address] [facility] [address] [facility] [address] Health Maintenance Due Date Last Done Comments [...] surgery documented in this encounter Care Teams Wrapping Machine Tender Relationship Specialty Start Date End Date August, Tristian Schulz MD [address] [place] [facility] [place] [address] PCP - General Family Medicine 11/30/22 documented as of this encounter
--- OUTSIDE RECORDS SUMMARY | 2023-08-06 10:52 | External Medical Summary | Summary of Care ---
Author Name Unknown Organization [facility] Address [address] [facility] [address] Phone [phone] Care Team Providers Care Medical Records Director Name Role Phone Tristian Dyson MD Primary Care Provider [phone] Encounter Details Date Type Department Care Team (Late st Contact Info) Description 04/19/2023 Result Scan Unspecified Department Erwin Burns, DO [address] [place] [address] <No scans attached> Allergies No known active allergiesdocumented as of this encounter (statuses as of 04/19/2023) Medications Medication Sig Dispensed Refills Start Date End Date Status Omeprazole 20 MG Oral Capsule Delayed Release (PriLOSEC) Take 1 Capsule by mouth in the morning and 1 Capsule before bedtime. 0 Active Aspirin 81 MG Oral Tablet Delayed Release Take 1 Tablet by mouth in the morning. 0 Active Fluticasone Propionate 50 MCG/ACT Nasal Suspension Administer 1 [place] into nostril in the morning. 0 Active [...] as of this encounter (statuses as of 04/19/2023) Active Problems Problem Noted Date Diagnosed Date Prediabetes 12/07/2022 Reflux esophagitis 01/08/2004 Tobacco use disorder 05/18/2002 Diaphragmatic hernia Bacterial pneumonia documented as of this encounter (statuses as of 04/19/2023) Social History Tobacco Use Types Packs/Day Years [...] 1:00 PM EST Office Visit General Surgery, [facility] [address] [place] [address] Gómez Jara MD [address] [place] [address] 06/03/2023 11:00 AM EST Office Visit [facility] [address] [facility] [phone] AugustTristian MD [address] [place] [address] 06/24/2023 2:30 PM EST Office Visit Cardiology, [facility] [address] Katty Dinero CRNP [facility] [place] [address] 01/13/2024 2:00 PM EDT Cardiac Studies Cardiac Studies, [facility] [place] [address] 01/18/2024 11:00 AM EDT Cardiac Studies Cardiology, [facility] [address] [facility] [address] [facility] [place] [address] Health Maintenance Due Date Last Done Comments [...] Date/Time Associated Diagnosis Comments CARDIOLOGY SCANNED RESULT 04/19/2023 documented in this encounter Results * CARDIOLOGY SCANNED RESULT (04/19/2023) 04/19/2023 Erwin Burns DO OTHER documented in this encounter Care Teams Medical Records Director Relationship Specialty Start Date End Date August, Tristian Schulz MD [address] [place] [address] PCP - General Family Medicine 11/30/22 documented as of this encounter
--- OUTSIDE RECORDS SUMMARY | 2023-08-06 10:52 | External Medical Summary | Summary of Care ---
Author Name Unknown Organization [facility] Address [address] [place] [address] Phone [phone] Care Team Providers Care Lead Coater Name Role Phone Tristian Dyson MD Primary Care Provider [phone] Reason for Visit * Reason Onset Date Comments Follow Up 02/11/2023 Encounter Details Date Type Department Care Team Description 02/11/2023 Telephone General Surgery, [facility] [address] [place] [id number] Gómez Jara MD [address] [place] [id number] Follow Up Allergies No known active allergiesdocumented as of this encounter (statuses as of 02/11/2023) Medications Medication Sig Dispensed Refills Start Date End Date Status Omeprazole 20 MG Oral Capsule Delayed Release (PriLOSEC) Take 1 Capsule by mouth in the morning and 1 Capsule before bedtime. 0 Active Aspirin 81 MG Oral Tablet Delayed Release Take 1 Tablet by mouth in the morning. 0 Active Fluticasone Propionate 50 MCG/ACT Nasal Suspension Administer 1 Severance into nostril in the morning. 0 Active [...] as of this encounter (statuses as of 02/11/2023) Active Problems Problem Noted Date Prediabetes 12/07/2022 Reflux esophagitis 01/08/2004 Tobacco use disorder 05/18/2002 Diaphragmatic hernia Bacterial pneumonia documented as of this encounter (statuses as of 02/11/2023) Social History Tobacco Use Types Packs/Day Years Used Date Smoking Tobacco: Former Cigarettes Smokeless Tobacco: Former Snuff Alcohol Use Standard Drinks/Week Comments No 0 (1 standard drink = 0.6 oz pur e alcohol) Food Insecurity Answer Date Recorded Within the past 12 months, y ou worried that your food would run out before you got money to buy more. Never true 11/24/2022 Within the past 12 months, t he food you bought just didn't last and you didn't have money to get more. Never true 11/24/2022 Sex Assigned at Date Recorded Male 11/24/2022 1:13 AM E DT Job Start Date Occupation Industry Not on file Not on file Not on file documented as of this encounter Miscellaneous Notes * Telephone Encounter - Che Davis LPN - 02/11/2023 2:04 PM EDT Called and told patient the directions from Dr Burns * Telephone Encounter - Erwin Burns DO - 02/11/2023 1:51 PM EDT Recommend patient takes his last dose of Xarelto in the evening 3 days prior to surgery. Therefore no Xarelto on the day 2 days prior to procedure. No Xarelto on the day prior to procedure. No Xarelto the day of the procedure. As long as there are no bleeding complications, would resume Xarelto the day after the procedure. 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 Erwin Burns DO * Telephone Encounter - Che Davis LPN - 02/11/2023 12:17 PM EDT Patient is having surgery the 21 of March, when should he he stop his Xarelto. How many days before. Thank you. documented in this encounter Plan of Treatment Upcoming Encounters Date Type Specialty Care Team Description 03/21/2023 Office Visit Surgery Gómez Jara MD [address] [place] [id number] 04/06/2023 Office Visit General Surgery Gómez Jara MD [address] [place] [address] 06/03/2023 Office Visit Family Medicine Tristian Dyson MD [address] [place] [id number] 06/24/2023 Office Visit Cardiology Katty Dinero CRNP [address] [place] [address] 01/13/2024 Cardiac Studies Cardiac Studies 01/18/2024 Cardiac Studies Cardiology [facility] [address] [place] [address] Health Maintenance Due Date Last Done Comments [...] filedocumented as of this encounter Care Teams Lead Coater Relationship Specialty Start Date End Date August, Tristian Schulz MD [address] [id number] PCP - General Family Medicine 11/30/22 documented as of this encounter
[2023-08-06 11:32] LABS: Basophils # (auto) 0.04 K/uL (0.00-0.20); Basophils % (auto) 0.5 %; Eosinophils # (auto) 0.09 K/uL (0.00-0.50); Eosinophils % (auto) 1.1 %; Hematocrit (blood only) 44.8 % (42.0-52.0); Hemoglobin 15.8 g/dl (14.0-18.0); Immature Granulocytes # (auto) 0.08 K/uL (0.01-0.20); Lymphocytes # (auto) 0.99 K/uL (1.20-3.40); Lymphocytes % (auto) 12.2 %; Mean Corpuscular Hemoglobin 32.2 pg (25.0-34.0); Mean Corpuscular Hgb Conc 35.3 g/dL (32.0-36.0); Mean Corpuscular Volume 91.4 fL (80.0-100.0); Mean Platelet Volume 12.8 fL (9.4-12.4); Monocytes % (auto) 7.4 %; Neutrophils # (auto) 6.34 K/uL (1.40-6.50); Neutrophils % (auto) 77.8 %; Platelet Count 134 K/uL (130-400); RDW Coefficient of Variation 13.2 % (11.5-14.5); RDW Standard Deviation 44.3 fL (36.4-46.3); White Blood Count 8.14 K/ul (4.8-10.8)
[2023-08-06] MEDS: NITROGLYCERIN 2% OINTMENT 30GM TUBE EXT STA (11:35)
[2023-08-06] MEDS: ONDANSETRON INJ 2 MG/ML 2 ML VIAL IV STA (11:35)
[2023-08-06] MEDS: MoRPHine SULFATE 2 MG/ML CARP IV STA (11:35)
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
[2023-08-06 11:50] LABS: Albumin Globulin Ratio 1.3 (0.9-2); Albumin Level 4.3 gm/dl (3.4-5.0); BUN Creatinine Ratio 24.7 (10-20); Bilirubin,Total 1.2 mg/dl (0.2-1.0); Calcium 9.5 mg/dl (8.6-10.3); Creatinine Clr Calc Pharmacy 121.9 ml/min; Est GFR (African American) 108.1 ml/min; Est GFR (Non-African American) 93.3 ml/min; Globulin 3.3 gm/dl (2.5-4.0); Magnesium 1.6 mg/dl (1.7-2.4); Potassium 3.4 mmol/L (3.5-5.1); Total Protein 7.6 gm/dl (6.0-8.3)
[2023-08-06 11:55] LABS: Troponin I High Sensitivity 35.1 pg/ml (0-20)
[2023-08-06 12:06] LABS: INR 1.2 (0.9-1.1); Partial Thromboplastin Ratio 1.2; Partial Thromboplastin Time 34 Seconds (21-31); Prothrombin Time 12.5 Seconds (9.0-12.0)
[2023-08-06] MEDS: MAGNESIUM SULFATE / D5W 1 GM/100 ML BAG IV STA (12:17)
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
[2023-08-06] MEDS: POTASSIUM CHLORIDE CRTAB 20 MEQ TABCR PO STA (12:34)
--- NOTE | 2023-08-06 13:04 | XRay Report ---
XR chest 1V portable CLINICAL HISTORY: Chest pain, nonspecific TECHNIQUE: Single frontal radiograph of the chest was obtained. Comparison: None available at the time of this dictation. FINDINGS: An implanted pacemaker is seen. Cardiomegaly is noted. The lungs are clear. No evidence of pleural ef fusion or pneumothorax. IMPRESSION: No acute chest disease. ACT 112: Negative or not required by law. Electronically signed by: Alexey Bowling M.D. 08/06/2023 1:03 PM
[2023-08-06 13:59] LABS: Troponin I High Sensitivity 43.9 pg/ml (0-20)
[2023-08-06 14:08] LABS: Thyroid Stimulating Hormone 1.074 uIu/ml (0.300-4.500)
[2023-08-06] MEDS ORDERED: POLYETHYLENE (MIRALAX) 17 GM PACK PO PRN (14:10)
[2023-08-06] MEDS ORDERED: ALUMINUM/MAGNESIUM SUSP 30 ML UDC PO PRN (14:10)
[2023-08-06] MEDS ORDERED: MAGNESIUM HYDROXIDE SUSP 30 ML UDC PO PRN (14:10)
[2023-08-06] MEDS: MAGNESIUM SULFATE / D5W 1 GM/100 ML BAG IV ONE (15:45)
[2023-08-06] MEDS: HEPARIN SODIUM/DEXTROSE 25,000 UNITS/500 ML BAG IV SCH (15:45)
[2023-08-06] MEDS: FUROSEMIDE INJ 20 MG/2 ML VIAL IV SCH (15:45)
[2023-08-06] MEDS: OPTIRAY 320 100ml IV ONE (16:18)
[2023-08-06] MEDS: ACETAMINOPHEN 325 MG TAB PO PRN (16:29)
[2023-08-06] MEDS: POTASSIUM CHLORIDE CRTAB 20 MEQ TABCR PO ONE (16:30)
--- NOTE | 2023-08-06 16:43 | CT Scan Report ---
CT facial bones w con CLINICAL HISTORY: eval for abscess TECHNIQUE: Multidetector row helical CT of the maxillofacial bones was performed with administration of intravenous contrast, and processed with bone and soft tissue algorithms. Coronal and sagittal ref ormations were obtained. Automated dose lowering techniques and/or adjustment according to patient si ze were utilized for this exam. Comparison: None available at the time of this dictation. FINDINGS: Nasal bones are normal. The mandible is intact. Periapical lucency is seen about the left mandibular canine and first molar. Multiple dental caries are seen. No abscesses are seen. The temporomandibular joints are anatomically aligned. Pterygoid plates are intact. Zygomatic arches are intact. The globes are normal and symmetric, without proptosis, obvious disruption or lens dislocation. Ther e is no orbital radiopaque foreign body. The orbital hanley are intact. The retrobulbar fat is without evidence of disruption. Extraocular muscles are normal and symmetric. Optic nerve sheath complexes are normal in course and caliber. Imaged portions of the paranasal sinuses and mastoid air cells are clear. IMPRESSION: Periapical lucencies about the left mandibular canine and first molar may represent periapical absces s. No cortical breakthrough or drainable soft tissue abscess is seen. ACT 112: Negative or not required by law. Electronically signed by: Alexey Bowling M.D. 08/06/2023 4:40 PM
[2023-08-06] MEDS: AMPICILLIN/SULBACTAM SOD 3,000 MG in SODIUM CHLOR 0.9% MINI-B 100 ML IV SCH (18:00)
[2023-08-06] MEDS ORDERED: Heparin IV Adult Wt-Based Low-Dose *NO* INITIAL Bolus Protocol IV SCH (19:00)
[2023-08-06] MEDS: FLUTICASONE PROPIONATE NA SPR 16 GM BTL SCH (20:16)
[2023-08-06] MEDS: ATORVASTATIN 40 MG TAB PO SCH (20:19)
[2023-08-06] MEDS: PANTOprazole 40 MG TAB PO SCH (20:19)
[2023-08-06] MEDS: LOSARTAN POTASSIUM 50 MG TAB PO SCH (20:19)
[2023-08-06] MEDS: SODIUM CHLORIDE 0.65% NA SOLN 45 ML (OCEAN) SCH (20:20)
--- NOTE | 2023-08-06 22:06 | Electrocardiogram Report ---
Test Reason : Blood Pressure : / mmHG Vent. Rate : 077 BPM Atrial Rate : 055 BPM P-R Int : 000 ms QRS Dur : 192 ms QT Int : 458 ms P-R-T Axes : 000 -82 088 degrees QTc Int : 518 ms Ventricular-paced rhythm Abnormal ECG When compared with ECG of 21-MAR-2023 06:00, Vent. rate has increased BY 23 BPM Confirmed by Osman Ramsey ([id number]) on 08/06/2023 10:06:26 PM Referred By: REFERRED SELF Confirmed By:Osman Ramsey
[2023-08-06 22:07] LABS: ANTI-Xa, UFH(UnfractionatedHep 0.66 IU/ml (0.3-0.7)
[2023-08-07 06:45] LABS: Basophils # (auto) 0.06 K/uL (0.00-0.20); Basophils % (auto) 0.9 %; Eosinophils % (auto) 4.3 %; Hemoglobin 15.4 g/dl (14.0-18.0); Immature Granulocytes # (auto) 0.02 K/uL (0.01-0.20); Immature Granulocytes % (auto) 0.3 %; Lymphocytes # (auto) 1.04 K/uL (1.20-3.40); Lymphocytes % (auto) 14.8 %; Mean Corpuscular Hemoglobin 32.6 pg (25.0-34.0); Mean Corpuscular Hgb Conc 35.8 g/dL (32.0-36.0); Mean Corpuscular Volume 90.9 fL (80.0-100.0); Mean Platelet Volume 13.1 fL (9.4-12.4); Monocytes # (auto) 0.63 K/uL (0.11-0.59); Neutrophils # (auto) 4.98 K/uL (1.40-6.50); Neutrophils % (auto) 70.7 %; Platelet Count 125 K/uL (130-400); RDW Coefficient of Variation 13.5 % (11.5-14.5); RDW Standard Deviation 45.4 fL (36.4-46.3); Red Blood Count 4.73 M/uL (4.70-6.10); White Blood Count 7.03 K/ul (4.8-10.8)
[2023-08-07 06:57] LABS: Albumin Globulin Ratio 1.3 (0.9-2); Albumin Level 3.9 gm/dl (3.4-5.0); BUN Creatinine Ratio 21.8 (10-20); Bilirubin,Total 1.4 mg/dl (0.2-1.0); Chol HDL Ratio 1.9 (0-5); Creatinine Clr Calc Pharmacy 119.9 ml/min; Est GFR (African American) 109.8 ml/min; Est GFR (Non-African American) 94.7 ml/min; Potassium 3.6 mmol/L (3.5-5.1); Total Protein 6.9 gm/dl (6.0-8.3)
[2023-08-07 07:03] LABS: Troponin I High Sensitivity 39.4 pg/ml (0-20)
[2023-08-07 07:18] LABS: ANTI-Xa, UFH(UnfractionatedHep 0.36 IU/ml (0.3-0.7)
[2023-08-07 07:35] LABS: Estimated Average Glucose 128 mg/dl; Hemoglobin A1C 6.1 % (4.5-5.6)
--- NOTE | 2023-08-07 07:46 | Hospitalist Progress Note ---
Date of Service August 07, 2023 Assessment & Plan (1) Precordial chest pain: (2) Elevated troponin: (3) Hypertension: (4) Hypomagnesemia: Plan This is a 67-year-old male who has a significant past medical history of CAD with history of OR, HTN, HLD, prediabetes, GERD and hx of alcohol and tobacco use who comes in ED secondary to chest pain and elevated blood pressure prior to arrival. Atypical chest pain Demand ischemia Pt with chest pain Trop 35 to 43 to 55 to 39 EKG with paced rhythm Echo with EF 55-60%, LVH, mild dilated RV, moderately dilated LA and RA, mild aortic regurgitation, mild mitral regurg and mild tricuspid regurg. Chest XRAY with no acute disease Telemetry monitoring Cardiology consulted, appreciate recs Acute Volume Overload Possible CHF BNP of 284 Chest XR as above Echo as above Hold chlorthalidone in favor of Lasix 20 mg IV daily Cardiology consulted, appreciate recs Hypertension BP improving Continue amlodipine, losartan, may need further blood pressure regimen ad justment if it remains elevated Thrombocytopenia Slightly decreased Continue to monitor at this time Prediabetes Hyperglycemia noted Hgba1c 6.1 Dietary and exercise changes PCP follow up Consider ISS if glucose levels >140 Hypomagnesemia Replete as needed Elevated liver enzymes t bili elevated Continue to monitor PAF hx of pacemaker pacemaker interrogation Held Xarelto, transitioned to IV heparin Resume xarelto as needed Hiatal hernia GERD Continue PPI Poor dentition Pt reporting pain specifically in area of [address] face noting periapical abscess On IV Unasyn OMFS consult pending Hx of alcohol abuse Encourage cessation AWSS protocol while hospitalized DVT ppx: IV heparin FULL CODE Dispo: PT/OT ordered Admission and Anticipated Discharge Date Admission Date: August 06, 2023 Subjective Pt was seen in the AM. States has not been able to sleep, requesting med. States that beeping contributes to anxiety/insomnia. Review of Systems Review of Systems: All systems reviewed & are unremarkable except as noted in Subjective Physical Exam Physical Exam: General: Alert, oriented. No acute distress Psych: Appropriate mood and affect Neuro: No gross deficits HEENT: NC/AT CV: RRR Resp: Breath sounds clear bilaterally, no increased effort of breathing. Abdomen: Soft, nontender, nondistended Extremities: edema in lower extremities bilaterally. Results & Data Results & Data Vital Signs (Past 12 Hours) Vital Signs Temp Pulse Pulse Resp BP Pulse Ox O2 Del Method 08/07/23 07:42 36.5 C 69 19 162/92 H 96 Nasal Cannula 08/07/23 03:35 55 L 19 99 08/07/23 03:00 36.5 C 48 L 21 141/89 H 98 Room Air 08/06/23 23:00 36.6 C 51 L 24 142/83 H 98 CPAP 08/06/23 22:00 54 L 08/06/23 20:40 52 L 16 98 O2 Flow Rate 08/07/23 07:42 2 08/07/23 03:35 08/07/23 03:00 08/06/23 23:00 08/06/23 22:00 08/06/23 20:40 Diagnostic Findings Chest X-Ray 08/06/23 11:17 XR chest 1V portable CLINICAL HISTORY: Chest pain, nonspecific TECHNIQUE: Single frontal radiograph of the chest was obtained. Comparison: None available at the time of this dictation. FINDINGS: An implanted pacemaker is seen. Cardiomegaly is noted. The lungs are clear. No evidence of pleural effusion or pneumothorax. IMPRESSION: No acute chest disease. ACT 112: Negative or not required by law. Electronically signed by: Alexey Bowling M.D. 08/06/2023 1:[address] 08/06/23 13:50 CT facial bones w con CLINICAL HISTORY: eval for abscess TECHNIQUE: Multidetector row helical CT of the maxillofacial bones was performed with administration of intravenous contrast, and processed with bone and soft tissue algorithms. Coronal and sagittal reformations were obtained. Automated dose lowering techniques and/or adjustment according to patient size were utilized for this exam. Comparison: None available at the time of this dictation. FINDINGS: Nasal bones are normal. The mandible is intact. Periapical lucency is seen about the left mandibular canine and first molar. Multiple dental caries are seen. No abscesses are seen. The temporomandibular joints are anatomically aligned. Pterygoid plates are intact. Zygomatic arches are intact. The globes are normal and symmetric, without proptosis, obvious disruption or lens dislocation. There is no orbital radiopaque foreign body. The orbital hanley are intact. The retrobulbar fat is without evidence of disruption. Extraocular muscles are normal and symmetric. Optic nerve sheath complexes are normal in course and caliber. Imaged portions of the paranasal sinuses and mastoid air cells are clear. IMPRESSION: Periapical lucencies about the left mandibular canine and first molar may represent periapical abscess. No cortical breakthrough or drainable soft tissue abscess is seen. ACT 112: Negative or not required by law. Electronically signed by: Alexey Bowling M.D. 08/06/2023 4:40 PM (3) Hypertension Hypertension type: unspecified Qualified Code(s): I10 - Essential (primary) hypertension
[2023-08-07] MEDS: POTASSIUM CHLORIDE 10 MEQ TABCR PO SCH (08:46)
[2023-08-07] MEDS: ASPIRIN 81 MG ECTAB PO SCH (08:46)
[2023-08-07] MEDS: ADVANCED PROBIOTIC 625 MG CAPSULE PO SCH (08:46)
[2023-08-07] MEDS: amLODIPine BESYLATE 5 MG TAB PO SCH (08:46)
[2023-08-07] MEDS ORDERED: CHLORTHALIDONE 25 MG TAB PO SCH (09:00)
--- NOTE | 2023-08-07 12:55 | Cardiology Consultation ---
<Statement entered by Zara Heller, - 08/07/23 15:28> I have reviewed the advanced practitioner's documentation and agree with the plan of care. I accept the responsibility for the associated risk. Pt seen in cardiology consultation due to Hypertensive urgency with some chest pressure and WARD. He admits he had more sodium intake this week. He got IV lasix and is feeling much better. he ambulated the halls feeling well. 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 His BP is better. Would continue his home cardiac medications; might want to consider changing chlorthalidone to lasix but pt will see Dr. Burns this week his appointment is 08/10 and they can decide if that is a good option. Pt says typically his BP is good at home. He will monitor home BP and bring them in to his cardiology appointment. His echo today looked good; normal EF no wall motion abnormality nor significant valvular pathology. He is ok for discharge home from a cardiac perspective-i let the hospitalist know this-I guess there is a recommendation for pt to be seen by oral maxillary surgery prior to discharge so he might be staying overnight. Please re-consult as needed. Date of Consultation August 07, 2023 Assessment & Plan (1) Hypertension: (2) Precordial chest pain: (3) Elevated troponin: Plan Patiently currently admitted with chest discomfort and accelerated hypertension Troponin was mildly elevated so already trending back down, likely secondary to demand ischemia Blood pressure appears much better controlled than it was prior to presentation Recently started drinking alcohol again after abstaining from alcohol use for several years which may be playing a role in the current situation No ischemic changes noted on ECG Monitor replace electrolytes as necessary Patient reporting 40 pound weight gain however his weight documented on presentation of 115 kg is approximately the same as it was in the cardiology office 6 months ago of 112 kg Continue amlodipine, aspirin, atorvastatin, losartan Patient started on IV diuresis per attending service furosemide 20 mg IV daily, adequate output euvolemic on exam can go back on home BP regimen as I suspect the Na was driving his higher BP already has close follow up scheduled with cardiology 08/11/23 montior BP at home Case discussed with Dr. Heller Please see attestation for additional recommendations. EMILY Guzmán Department of Cardiology, [facility] This chart was completed in part utilizing Speech Voice Recognition Software. Grammatical errors, random word insertions, pronoun errors, and incomplete sentences are an occasional consequence of this system due to software limitations, ambient noise, and hardware issues. Any formal questions or concerns about the content, text, or information contained within the body of this dictation should be directly addressed to the provider for clarification. History of Present Illness Reason for Consultation: Chest pain, hypertension with history of [place] [facility] Attending Physician: Dinora Lucero MD History of Present Illness 67-year-old male seen in consultation today in regard to chest pain. He presented to the emergency room yesterday for further evaluation after having woken up not feeling well with blood pressures in the 190s over 100s and e xperiencing chest pain. Reports compliance with medications but reported dietary indiscretions with increased Na intake. he has a known past medical history of CAD status post [place], hypertension, hyperlipidemia, prediabetes, GERD, alcohol dependence, tobacco use, SSS s/p Medtronic DCP 09/2021, permanent afib, FLACO, DM II and hiatal hernia. Allergies Allergy/AdvReac Type Severity Reaction Status Date / Time No Known Allergies Allergy Verified 03/21/23 06:08 Home Medications Medication Instructions Recorded Confirmed Type Vitamin D3 1 tab PO QAM 03/14/23 08/06/23 History amlodipine 5 mg tablet 5 mg PO QAM 03/14/23 08/06/23 History aspirin 81 mg capsule 81 mg PO QAM 03/14/23 08/06/23 History atorvastatin 80 mg tablet 80 mg PO PM 03/14/23 08/06/23 History calcium 600 mg capsule 600 mg PO QPM 03/14/23 08/06/23 History chlorthalidone 50 mg tablet 50 mg PO QAM 03/14/23 08/06/23 History loratadine 10 mg tablet (Claritin) 10 mg PO DAILY PRN Allergy Symptoms 03/14/23 08/06/23 History losartan 50 mg tablet 50 mg PO BID 03/14/23 08/06/23 History magnesium 250 mg tablet 500 mg PO DAILY 03/14/23 08/06/23 History omeprazole 20 mg delayed 20 mg PO BID 03/14/23 08/06/23 History release,disintegrating tablet potassium chloride 10 mEq 10 meq PO QAM 03/14/23 08/06/23 History tablet,extended release rivaroxaban 20 mg tablet (Xarelto) 20 mg PO PM 03/14/23 08/06/23 History zinc 1 tab PO QPM 03/14/23 08/06/23 History Patient History Medical History CAD (coronary artery disease) - Cath in 2020 revealed 100% occlusion of distal obtuse marginal branch of Cx that was felt to be embolic related to a fib (was not on AC at the time) rather than atherosclerosis. - PTCA performed without stent placement; mild nonbostructive atherosclerotic disease of RCA, LAD, and Cx treated medically in the interim per cardio records GERD (gastroesophageal reflux disease) History of anesthesia reaction woke up during EGD History of multiple concussions HTN (hypertension) CHF (congestive heart failure) Pacemaker placed 2021. Bradycardia. Medtronic. Last check approx 1 mo ago. Atrial fibrillation Follows with Dr. Burns On Xarelto Hiatal hernia History of myocardial infarction 2020 Sleep apnea CPAP Surgical History History of cardioversion History of arthroscopy of shoulder Rt History of colonoscopy History of esophagogastroduodenoscopy (EGD) History of cardiac cath 2020 -- [place] -- no stents History of nasal polypectomy Social History (Updated 08/06/23 @ 15:21 by Diana Boyer PA-C) Smoking Status: Former smoker Second Hand Exposure: No; Do You Dip or Chew Tobacco: No (qiot 10 years ago); Hx Alcohol Use: Yes Alcohol type: hard liquor Hx Substance Use: No Preferred Language: Ukrainian Communication Ability: Effective Castings Drafter Required: No Beliefs That Will Affect Care: None Current Living Situation: Family Other Information That Helps Us Care for You: No Feels Safe at Home: Yes Safety Concerns: Feels Safe At This Time Assistive Devices: None Review of Systems Constitutional: no chills, no body aches and no fatigue Respiratory: no cough and no dyspnea Cardiovascular: + chest pain; no palpitations, no lighth eadedness, no syncope and no edema Gastrointestinal: no abdominal pain, no nausea and no vomiting Integumentary: no rash and no lesions Physical Exam Constitutional: WD/WN, vitals as above well developed and well nourished; no acute distress Eyes: PERRL, conjunctivae normal, anicteric sclerae Neck: trachea midline, no thyromegaly Respiratory: normal respiratory effort, lungs clear to auscultation normal respiratory effort; no respiratory distress Cardiovascular: Rate/Rhythm: regular rate Heart Sounds: no murmur Vessels: no JVD and no carotid bruit Left chest pacer pocket well-approximated, no erythema edema or evidence of erosion Gastrointestinal (Abdomen): normal bowel sounds, soft, nontender, no hepatosplenomegaly Skin: no rashes, warm and dry Psychiatric: A+Ox3, euthymic affect Results & Data Vital Signs (Past 12 Hours) Vital Signs Temp Pulse Pulse Resp BP Pulse Ox O2 Del Method 08/07/23 11:27 36.9 C 57 L 19 142/79 H 98 Room Air 08/07/23 08:03 50 L 08/07/23 07:42 36.5 C 69 19 162/92 H 96 Nasal Cannula 08/07/23 03:35 55 L 19 99 08/07/23 03:00 36.5 C 48 L 21 141/89 H 98 Room Air O2 Flow Rate 08/07/23 11:27 08/07/23 08:03 08/07/23 07:42 2 08/07/23 03:35 08/07/23 03:00 Laboratory Results Cardiac Enzymes 08/06/23 08/06/23 08/06/23 Range/Units 13:09 13:12 21:22 AST (13-39) U/L Troponin I High Sens 43.9 H 55.4 H* D (0-20) pg/ml B-Natriuretic Peptide 284 H (0-100) pg/ml 08/07/23 Range/Units 06:22 AST 28 (13-39) U/L Troponin I High Sens 39.4 H D (0-20) pg/ml B-Natriuretic Peptide (0-100) pg/ml Coagulation 08/06/23 Range/Units 13:12 B-Natriuretic Peptide 284 H (0-100) pg/ml Lipids 08/07/23 Range/Units 06:22 Triglycerides 91 (0-150) mg/dl Cholesterol 120 (0-200) mg/dl HDL Cholesterol 62 mg/dl Cholesterol/HDL Ratio 1.9 (0-5) CBC 08/07/23 Range/Units 06:22 WBC 7.03 (4.8-10.8) K/ul RBC 4.73 (4.70-6.10) M/uL Hgb 15.4 (14.0-18.0) g/dl Hct 43.0 (42.0-52.0) % Plt Count 125 L (130-400) K/uL Neut # (Auto) 4.98 (1.40-6.50) K/uL Lymph # (Auto) 1.04 L (1.20-3.40) K/uL Gregory # (Auto) 0.63 H (0.11-0.59) K/uL Eos # (Auto) 0.30 (0.00-0.50) K/uL Baso # (Auto) 0.06 (0.00-0.20) K/uL Comprehensive Metabolic Panel 08/07/23 Range/Units 06:22 Sodium 139 (136-145) mmol/L Potassium 3.6 (3.5-5.1) mmol/L Chloride 102 (98-107) mmol/L Carbon Dioxide 32 (21-32) mmol/L BUN 17 (6-23) mg/dl Creatinine 0.78 (0.6-1.4) mg/dl Glucose 125 H (70-99(Fasting)) mg/dl Calcium 9.0 (8.6-10.3) mg/dl AST 28 (13-39) U/L ALT 30 (7-52) U/L Alkaline Phosphatase 65 (34-104) U/L Total Protein 6.9 (6.0-8.3) gm/dl Albumin 3.9 (3.4-5.0) gm/dl Intake and Output 08/06/23 08/07/23 08/07/23 22:59 06:59 14:59 Intake Total 842.334 / 1312.001 369.667 / 1312.001 100 / 100 Output Total 2405 / 3555 1150 / 3555 825 / 825 Balance -1562.666 / -2242.999 -780.333 / -2242.999 -725 / -725 Intake: IV 332.334 / 802.001 369.667 / 802.001 100 / 100 Ampicillin/Sulbactam Sod 3,000 100 / 300 200 / 300 100 / 100 mg In Sodium Chlor 0.9% Mini-B 100 ml @ 100 mls/hr IV Q6H [facility] Rx#:[id number] Heparin Sodium/Dextrose 25,000 132.334 / 302.001 169.667 / 302.001 units In 500 ml @ 1,000 UNITS/ HR 20 mls/hr IV .Q24H [facility] Rx#: [id number] Magnesium Sulfate / D5w 1 gm In 100 / 100 100 ml @ 50 mls/hr IV ONE ONE Rx#:[id number] Oral 510 / 510 Output: Urine 2405 / 3555 1150 / 3555 825 / 825 Other: Weight 115 kg Diagnostic Findings Laboratory Results WBC 7.03 K/ul (4.8-10.8) 08/07/23 06:22 RBC 4.73 M/uL (4.70-6.10) 08/07/23 06:22 Hgb 15.4 g/dl (14.0-18.0) 08/07/23 06:22 Hct 43.0 % (42.0-52.0) 08/07/23 06:22 MCV 90.9 fL (80.0-100.0) 08/07/23 06:22 MCH 32.6 pg (25.0-34.0) 08/07/23 06:22 MCHC 35.8 g/dL (32.0-36.0) 08/07/23 06:22 RDW Std Deviation 45.4 fL (36.4-46.3) 08/07/23 06:22 RDW Coeff of Lisa 13.5 % (11.5-14.5) 08/07/23 06:22 Plt Count 125 K/uL (130-400) L 08/07/23 06:22 MPV 13.1 fL (9.4-12.4) H 08/07/23 06:22 Immature Gran % (Auto) 0.3 % 08/07/23 06:22 Neut % (Auto) 70.7 % 08/07/23 06:22 Lymph % (Auto) 14.8 % 08/07/23 06:22 Gregory % (Auto) 9.0 % 08/07/23 06:22 Eos % (Auto) 4.3 % 08/07/23 06:22 Baso % (Auto) 0.9 % 08/07/23 06:22 Neut # (Auto) 4.98 K/uL (1.40-6.50) 08/07/23 06:22 Lymph # (Auto) 1.04 K/uL (1.20-3.40) L 08/07/23 06:22 Gregory # (Auto) 0.63 K/uL (0.11-0.59) H 08/07/23 06:22 Eos # (Auto) 0.30 K/uL (0.00-0.50) 08/07/23 06:22 Baso # (Auto) 0.06 K/uL (0.00-0.20) 08/07/23 06:22 Immature Gran # (Auto) 0.02 K/uL (0.01-0.20) 08/07/23 06:22 PT 12.5 Seconds (9.0-12.0) H 08/06/23 11:11 INR 1.2 (0.9-1.1) H 08/06/23 11:11 APTT 34 Seconds (21-31) H 08/06/23 11:11 PTT Ratio 1.2 08/06/23 11:11 Heparin Anti-Xa, Unfract 0.36 IU/ml (0.3-0.7) 08/07/23 06:22 Sodium 139 mmol/L (136-145) 08/07/23 06:22 Potassium 3.6 mmol/L (3.5-5.1) 08/07/23 06:22 Chloride 102 mmol/L (98-107) 08/07/23 06:22 Carbon Dioxide 32 mmol/L (21-32) 08/07/23 06:22 Anion Gap 5 (3-11) 08/07/23 06:22 BUN 17 mg/dl (6-23) 08/07/23 06:22 Creatinine 0.78 mg/dl (0.6-1.4) 08/07/23 06:22 Est Cr Clr Drug Dosing 119.9 ml/min 08/07/23 06:22 Est GFR ( Amer) 109.8 ml/min 08/07/23 06:22 Est GFR (Non-Af Amer) 94.7 ml/min 08/07/23 06:22 BUN/Creatinine Ratio 21.8 (10-20) H 08/07/23 06:22 Glucose 125 mg/dl (70-99(Fasting)) H 08/07/23 06:22 Estimat Average Glucose 128 mg/dl 08/07/23 06:22 Hemoglobin A1c 6.1 % (4.5-5.6) H 08/07/23 06:22 Calcium 9.0 mg/dl (8.6-10.3) 08/07/23 06:22 Magnesium 1.6 mg/dl (1.7-2.4) L 08/06/23 11:11 Total Bilirubin 1.4 mg/dl (0.2-1.0) H 08/07/23 06:22 AST 28 U/L (13-39) 08/07/23 06:22 ALT 30 U/L (7-52) 08/07/23 06:22 Alkaline Phosphatase 65 U/L (34-104) 08/07/23 06:22 Troponin I High Sens 39.4 pg/ml (0-20) H D 08/07/23 06:22 B-Natriuretic Peptide 284 pg/ml (0-100) H 08/06/23 13:12 Total Protein 6.9 gm/dl (6.0-8.3) 08/07/23 06:22 Albumin 3.9 gm/dl (3.4-5.0) 08/07/23 06:22 Globulin 3.0 gm/dl (2.5-4.0) 08/07/23 06:22 Albumin/Globulin Ratio 1.3 (0.9-2) 08/07/23 06:22 Triglycerides 91 mg/dl (0-150) 08/07/23 06:22 Cholesterol 120 mg/dl (0-200) 08/07/23 06:22 LDL Cholesterol, Calc 40 mg/dl 08/07/23 06:22 VLDL Cholesterol, Calc 18 mg/dl (0-30) 08/07/23 06:22 HDL Cholesterol 62 mg/dl 08/07/23 06:22 Cholesterol/HDL Ratio 1.9 (0-5) 08/07/23 06:22 Lipase 12 U/L (11-82) 08/06/23 11:11 TSH 1.074 uIu/ml (0.300-4.500) 08/06/23 13:09 Impressions Chest X-Ray 08/06/23 11:17 XR chest 1V portable CLINICAL HISTORY: Chest pain, nonspecific TECHNIQUE: Single frontal radiograph of the chest was obtained. Comparison: None available at the time of this dictation. FINDINGS: An implanted pacemaker is seen. Cardiomegaly is noted. The lungs are clear. No evidence of pleural effusion or pneumothorax. IMPRESSION: No acute chest disease. ACT 112: Negative or not required by law. Electronically signed by: Alexey Bowling M.D. 08/06/2023 1:[address] 08/06/23 13:50 CT facial bones w con CLINICAL HISTORY: eval for abscess TECHNIQUE: Multidetector row helical CT of the maxillofacial bones was performed with administration of intravenous contrast, and processed with bone and soft tissue algorithms. Coronal and sagittal reformations were obtained. Automated dose lowering techniques and/or adjustment according to patient size were utilized for this exam. Comparison: None available at the time of this dictation. FINDINGS: Nasal bones are normal. The mandible is intact. Periapical lucency is seen about the left mandibular canine and first molar. Multiple dental caries are seen. No abscesses are seen. The temporomandibular joints are anatomically aligned. Pterygoid plates are intact. Zygomatic arches are intact. The globes are normal and symmetric, without proptosis, obvious disruption or lens dislocation. There is no orbital radiopaque foreign body. The orbital hanley are intact. The retrobulbar fat is without evidence of disruption. Extraocular muscles are normal and symmetric. Optic nerve sheath complexes are normal in course and caliber. Imaged portions of the paranasal sinuses and mastoid air cells are clear. IMPRESSION: Periapical lucencies about the left mandibular canine and first molar may represent periapical abscess. No cortical breakthrough or drainable soft tissue abscess is seen. ACT 112: Negative or not required by law. Electronically signed by: Alexey Bowling M.D. 08/06/2023 4:40 PM Medications Administered Current Inpatient Medications Acetaminophen (Acetaminophen 325 Mg Tab) 650 mg PO Q4H PRN PRN Reason: Pain or Fever Stop: 09/05/23 14:09 Last Admin: 08/06/23 20:13 Dose: 650 mg Al Hydrox/Mg Hydrox/Simethicone (Aluminum/Magnesium Susp 30 Ml Udc) 15 ml PO Q4H PRN PRN Reason: Dyspepsia Stop: 09/05/23 14:09 Amlodipine Besylate (Amlodipine Besylate 5 Mg Tab) 5 mg PO QAM [facility] Stop: 09/06/23 08:59 Last Admin: 08/07/23 08:46 Dose: 5 mg Aspirin (Aspirin 81 Mg Ectab) 81 mg PO QAM [facility] Stop: 09/06/23 08:59 Last Admin: 08/07/23 08:46 Dose: 81 mg Atorvastatin Calcium (Atorvastatin 40 Mg Tab) 80 mg PO PM [facility] Stop: 09/05/23 20:59 Last Admin: 08/06/23 20:19 Dose: 80 mg Chlorthalidone (Chlorthalidone 25 Mg Tab) 50 mg PO QAM [facility] Stop: 09/06/23 08:59 Fluticasone Propionate (Fluticasone Propionate Na Spr 16 Gm Btl) 2 sprays NA BID [facility] Stop: 09/05/23 20:59 Last Admin: 08/07/23 08:46 Dose: 2 sprays Furosemide (Furosemide Inj 20 Mg/2 Ml Vial) 20 mg IV DAILY [facility] Stop: 09/05/23 15:29 Last Admin: 08/07/23 08:46 Dose: 20 mg Hydroxyzine HCl (Hydroxyzine Hcl 25 Mg Tab) 25 mg PO Q6H PRN PRN Reason: Anxiety/Insomnia Stop: 09/06/23 12:20 Heparin Sodium/Dextrose (Heparin Sodium/Dextrose) 25,000 units in 500 mls @ 20 mls/hr IV .Q24H [facility]; Protocol Stop: 09/05/23 14:14 Last Titration: 08/07/23 06:51 Dose: 1,000 units/hr, 20 mls/hr Ampicillin Sodium/Sulbactam Sodium 3,000 mg/ Sodium Chloride 100 mls @ 100 mls/hr IV Q6H [facility] Stop: 08/16/23 17:59 Last Infusion: 08/07/23 12:23 Dose: Infused Lactobacillus Acidophilus (Advanced Probiotic 625 Mg Capsule) 1,250 mg PO DAILY [facility] Stop: 09/06/23 08:59 Last Admin: 08/07/23 08:46 Dose: 1,250 mg Losartan Potassium (Losartan Potassium 50 Mg Tab) 50 mg PO BID [facility] Stop: 09/05/23 20:59 Last Admin: 08/07/23 08:46 Dose: 50 mg Magnesium Hydroxide (Magnesium Hydroxide Susp 30 Ml Udc) 30 ml PO Q12H PRN PRN Reason: Constipation Stop: 09/05/23 14:09 Pantoprazole Sodium (Pantoprazole 40 Mg Tab) 40 mg PO BID [facility]; Protocol Stop: 09/05/23 20:59 Last Admin: 08/07/23 08:46 Dose: 40 mg Polyethylene Glycol (Polyethylene (Miralax) 17 Gm Pack) 17 gm PO DAILY PRN PRN Reason: Constipation Stop: 09/05/23 14:09 Potassium Chloride (Potassium Chloride 10 Meq Tabcr) 10 meq PO QAM [facility] Stop: 09/06/23 08:59 Last Admin: 08/07/23 08:46 Dose: 10 meq Sodium Chloride (Sodium Chloride 0.65% Na Soln 45 Ml ([place])) 2 sprays NA BID [facility] Stop: 09/05/23 20:59 Last Admin: 08/07/23 08:46 Dose: 2 sprays (1) Hypertension Hypertension type: unspecified Qualified Code(s): I10 - Essential (primary) hypertension
[2023-08-07] MEDS: hydrOXYzine HCl 25 MG TAB PO PRN (13:43)
[2023-08-07] MEDS ORDERED: LORazepam 1 MG in SYRINGE 0.5 ML IV PRN (15:31)
[2023-08-07] MEDS ORDERED: LORazepam 3 MG in SYRINGE 1.5 ML IV PRN (15:31)
[2023-08-07] MEDS ORDERED: Ativan IV Alcohol Withdrawal--Active Protocol IV PRN (15:31)
[2023-08-07] MEDS ORDERED: HYDROmorphone INJ 0.5 MG/0.5 ML SYR IV PRN (17:35)
[2023-08-07] MEDS: traMADol HCL 50 MG TABLET PO PRN (17:54)
--- NOTE | 2023-08-07 20:26 | Oral/Maxillofacial Consult ---
Date of Consultation August 07, 2023 History of Present Illness Attending Physician: Dinora Lucero MD History of Present Illness Oral Maxillofacial Surgery Exam Present Complaint: have pain/swelling/drainage from my infected upper anterior and lower left teeth. Symptoms have been ongoing for a long while. Pain got so bad this caused my blood pressure to elevate recently Oral Exam: Finding--swelling and drainage associated with the Folling teeth= 7,8,9,10,19 and 22. tender gingival tissue with deep pocket formation.Teeth are in an abnormal position and removal is clinical indicated. Swelling lower left side with mucobuccal fold infection Many fractured, decayed and worn teeth with tender gingival tissue with deep pocket formation. Some of teeth are in an abnormal position and removal is clinical indicated. Imaging: CLINICAL HISTORY: evaluation for abscess FINDINGS: Nasal bones are normal. The mandible is intact. Periapical lucency is seen about the left mandibular canine and first molar. Multiple dental caries are seen. No abscesses are seen. The temporomandibular joints are anatomically aligned. Pterygoid plates are intact. Zygomatic arches are intact. The globes are normal and symmetric, without proptosis, obvious disruption or lens dislocation. There is no orbital radiopaque foreign body. The orbital hanley are intact. The retrobulbar fat is without evidence of disruption. Extraocular muscles are normal and symmetric. Optic nerve sheath complexes are normal in course and caliber. Imaged portions of the paranasal sinuses and mastoid air cells are clear. IMPRESSION: Periapical lucencies about the left mandibular canine and first molar may represent periapical abscess. No cortical breakthrough or drainable soft tissue abscess is seen. Soft tissue: floor of the mouth, tongue, hard/soft palate, posterior pharyngeal area all with in normal limits, no pathology or abnormal findings noted. No lesions noted that require follow up or Bx. Oral Care: Overall oral care is poor Occlusion: Class I with worn dentition TMJ exam: No pop, clicking, pain, good ROM, No history of TMJ injury or dysfunction Periodontal exam: gingival tissue with evidence of periodontal pathology. Head/Neck exam: Neck is supple, FROM, Able to extend and flex neck w/o difficulty, no masses, no abnormalities, no airway issues, H/O of sleep apnea on C-PP Treatment Plan: Set up with general anesthesia in hospital due to complexity of the procedure I reviewed the treatment plan and consent with the patient. Understanding was expressed. Time was given for questions regarding the surgery, risks and post op care. Discussed alternative to treatment--procedure as planned, Do not do surgery The following teeth are decayed and fractured and removal is indicated MIGNON: 7,8,9,10,19,22 + drain abscess lower left and upper anterior Risks discussed: Bleeding,Pain,swelling,infection, dry socket, delayed healing, nerve injury to face,lips,tongue,chin area which could be permanent (rare). TMJ, jaw stiffness, change in bite (rare), ear pain (referred). Sinus problems like fistula or infection. Need to leave a small root fragment in place to avoid injury to nerve or sinus. Relationship of teeth to nerve/sinus and risk of jaw fracture. Need for more comprehensive dental alf care reviewed: tooth brushing, rinsing, follow up care with Dr Echevarria. diet=[id number] dental. Discussed activity level, driving/work while on Rx pain Meds. Surgery to be set up once MIGNON as he was cleared by medicine and cardiology Possible CHF Echo--see report Hold chlorthalidone in favor of Lasix 20 mg IV daily Cardiology consulted, appreciate recs Hypertension BP improving Continue amlodipine, losartan, may need further blood pressure regimen adjustment if it remains elevated Thrombocytopenia Slightly decreased Continue to monitor at this time Prediabetes Hyperglycemia noted Hgba1c 6.1 Dietary and exercise changes PCP follow up Consider ISS if glucose levels >140 Hypomagnesemia Replete as needed Elevated liver enzymes t bili elevated Continue to monitor PAF hx of pacemaker pacemaker interrogation Held Xarelto, transitioned to IV heparin Resume xarelto as needed Hiatal hernia GERD Continue PPI Poor dentition Pt reporting pain specifically in area of 3 broken teeth =7,8,9,10,19,22 CT face noting periapical abscess On IV Unasyn Hx of alcohol abuse Encourage cessation AWSS protocol while hospitalized Plan For OR this afternoon Hold Heparin NPO-may have Ice chips Consent signed Allergies Allergy/AdvReac Type Severity Reaction Status Date / Time No Known Allergies Allergy Verified 03/21/23 06:08 Home Medications Medication Instructions Recorded Confirmed Type Vitamin D3 1 tab PO QAM 03/14/23 08/06/23 History amlodipine 5 mg tablet 5 mg PO QAM 03/14/23 08/06/23 History aspirin 81 mg capsule 81 mg PO QAM 03/14/23 08/06/23 History atorvastatin 80 mg tablet 80 mg PO PM 03/14/23 08/06/23 History calcium 600 mg capsule 600 mg PO QPM 03/14/23 08/06/23 History chlorthalidone 50 mg tablet 50 mg PO QAM 03/14/23 08/06/23 History loratadine 10 mg tablet (Claritin) 10 mg PO DAILY PRN Allergy Symptoms 03/14/23 08/06/23 History losartan 50 mg tablet 50 mg PO BID 03/14/23 08/06/23 History magnesium 250 mg tablet 500 mg PO DAILY 03/14/23 08/06/23 History omeprazole 20 mg delayed 20 mg PO BID 03/14/23 08/06/23 History release,disintegrating tablet potassium chloride 10 mEq 10 meq PO QAM 03/14/23 08/06/23 History tablet,extended release rivaroxaban 20 mg tablet (Xarelto) 20 mg PO PM 03/14/23 08/06/23 History zinc 1 tab PO QPM 03/14/23 08/06/23 History Patient History Medical History CAD (coronary artery disease) - Cath in 2020 revealed 100% occlusion of distal obtuse marginal branch of Cx that was felt to be embolic related to a fib (was not on AC at the time) rather than atherosclerosis. - PTCA performed without stent placement; mild nonbostructive atherosclerotic disease of RCA, LAD, and Cx treated medically in the interim per cardio records GERD (gastroesophageal reflux disease) History of anesthesia reaction woke up during EGD History of multiple concussions HTN (hypertension) CHF (congestive heart failure) Pacemaker placed 2021. Bradycardia. [employer]. Last check approx 1 mo ago. Atrial fibrillation Follows with Dr. Burns On Xarelto Hiatal hernia History of myocardial infarction 2020 Sleep apnea CPAP Surgical History History of cardioversion History of arthroscopy of shoulder Rt History of colonoscopy History of esophagogastroduodenoscopy (EGD) History of cardiac cath 2020 -- [place] -- no stents History of nasal polypectomy Social History (Updated 08/06/23 @ 15:21 by Diana Boyer PA-C) Smoking Status: Former smoker Second Hand Exposure: No; Do You Dip or Chew Tobacco: No (qiot 10 years ago); Hx Alcohol Use: Yes Alcohol type: hard liquor Hx Substance Use: No Preferred Language: Colombian Communication Ability: Effective Special Events Manager Required: No Beliefs That Will Affect Care: None Current Living Situation: Family Other Information That Helps Us Care for You: No Feels Safe at Home: Yes Safety Concerns: Feels Safe At This Time Assistive Devices: None Results & Data Vital Signs (Past 12 Hours) Vital Signs Temp Pulse Pulse Resp BP Pulse Ox O2 Del Method 08/07/23 19:12 36.9 C 57 L 18 149/81 H 99 Nasal Cannula 08/07/23 16:22 55 L 08/07/23 16:03 37.0 C 53 L 18 155/85 H 98 Room Air 08/07/23 11:27 36.9 C 57 L 19 142/79 H 98 Room Air O2 Flow Rate 08/07/23 19:12 3 08/07/23 16:22 08/07/23 16:03 08/07/23 11:27 PG Care Time/CCT Total # of Minutes Spent Total Time Spent with Patient: Total time spent is greater than 50% in coordination of care (as documented) at patient's floor/unit and/or counseling patient: Coding Level of Care Code 59170 IN/OBS CONSULT LVL 2,35M
--- NOTE | 2023-08-08 06:00 | Electrocardiogram Report ---
Test Reason : Blood Pressure : / mmHG Vent. Rate : 055 BPM Atrial Rate : 340 BPM P-R Int : 000 ms QRS Dur : 194 ms QT Int : 546 ms P-R-T Axes : 000 -79 096 degrees QTc Int : 522 ms Ventricular-paced rhythm Abnormal ECG When compared with ECG of 06-AUG-2023 11:07, Vent. rate has decreased BY 22 BPM Confirmed by Osman Ramsey ([id number]) on 08/08/2023 6:00:21 AM Referred By: REFERRED SELF Confirmed By:Osman Ramsey
[2023-08-08 06:12] LABS: Hematocrit (blood only) 45.4 % (42.0-52.0); Mean Corpuscular Hemoglobin 32.3 pg (25.0-34.0); Mean Corpuscular Hgb Conc 35.2 g/dL (32.0-36.0); Mean Corpuscular Volume 91.7 fL (80.0-100.0); Platelet Count 131 K/uL (130-400); RDW Coefficient of Variation 13.5 % (11.5-14.5); RDW Standard Deviation 45.8 fL (36.4-46.3); Red Blood Count 4.95 M/uL (4.70-6.10); White Blood Count 7.86 K/ul (4.8-10.8)
[2023-08-08 06:38] LABS: BUN Creatinine Ratio 16.3 (10-20); Calcium 9.2 mg/dl (8.6-10.3); Creatinine Clr Calc Pharmacy 104.9 ml/min; Est GFR (African American) 100.8 ml/min; Magnesium 1.9 mg/dl (1.7-2.4); Phosphorus 3.6 mg/dl (2.5-4.9); Potassium 3.4 mmol/L (3.5-5.1)
[2023-08-08 06:40] LABS: ANTI-Xa, UFH(UnfractionatedHep 0.12 IU/ml (0.3-0.7)
[2023-08-08] MEDS: HEPARIN SOD (PORCINE) 1000 UNIT/ML IV ONE (07:05)
[2023-08-08] MEDS: POTASSIUM CHLORIDE / WTR 10 MEQ/100 ML PLCT IV ONE (08:25)
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
--- NOTE | 2023-08-08 15:15 | Hospitalist Progress Note ---
Date of Service August 08, 2023 Assessment & Plan (1) Precordial chest pain: (2) Elevated troponin: (3) Hypertension: (4) Hypomagnesemia: Plan This is a 67-year-old male who has a significant past medical history of CAD with history of CO, HTN, HLD, prediabetes, GERD and hx of alcohol and tobacco use who comes in ED secondary to chest pain and elevated blood pressure prior to arrival. Atypical chest pain Demand ischemia Pt with chest pain Trop 35 to 43 to 55 to 39 EKG with paced rhythm Echo with EF 55-60%, LVH, mild dilated RV, moderately dilated LA and RA, mild aortic regurgitation, mild mitral regurg and mild tricuspid regurg. Chest XRAY with no acute disease Telemetry monitoring Cardiology consulted, appreciate recs -continue current meds -f/u with outpt cardiology for further evaluation or possible med changes (chlorthalidone). Acute Volume Overload Possible CHF BNP of 284 Chest XR as above Echo as above Hold chlorthalidone in favor of Lasix 20 mg IV daily Cardiology consulted, appreciate recs Hypertension BP improving Continue amlodipine, losartan, may need further blood pressure regimen adjustment if it remains elevated Thrombocytopenia Slightly decreased Continue to monitor at this time Prediabetes Hyperglycemia noted Hgba1c 6.1 Dietary and exercise changes PCP follow up Consider ISS if glucose levels >140 Hypomagnesemia Replete as needed Elevated liver enzymes t bili elevated Continue to monitor PAF hx of pacemaker pacemaker interrogation Held Xarelto, transitioned to IV heparin Resume xarelto as needed Hiatal hernia GERD Continue PPI Poor dentition Pt reporting pain specifically in area of [address] face noting periapical abscess On IV Unasyn OMFS consult -teeth extraction with I & D of abscess on 08/07 Hx of alcohol abuse Encourage cessation AWSS protocol while hospitalized DVT ppx: IV heparin FULL CODE Dispo: PT/OT ordered Admission and Anticipated Discharge Date Admission Date: August 06, 2023 Subjective Pt seen while awaiting his surgery. Daughter at bedside. Denies acute concerns. Review of Systems Review of Systems: All systems reviewed & are unremarkable except as noted in Subjective Physical Exam Physical Exam: General: Alert, oriented. No acute distress Psych: Appropriate mood and affect Neuro: No gross deficits HEENT: NC/AT CV: RRR Resp: Breath sounds clear bilaterally, no increased effort of breathing. Abdomen: Soft, nontender, nondistended Extremities: edema in lower extremities bilaterally. Results & Data Results & Data Vital Signs (Past 12 Hours) Vital Signs Temp Pulse Pulse Resp BP Pulse Ox O2 Del Method 08/08/23 15:05 36.6 C 55 L 18 142/83 H 95 Room Air 08/08/23 11:00 36.1 C L 95 H 18 135/77 94 Room Air 08/08/23 08:00 50 L 08/08/23 07:37 36.7 C 54 L 18 136/80 98 Room Air (3) Hypertension Hypertension type: unspecified Qualified Code(s): I10 - Essential (primary) hypertension
[2023-08-08] MEDS ORDERED: SUGAMMADEX SODIUM 200 MG/2 ML VIAL IV ONE (15:42)
[2023-08-08] MEDS ORDERED: fentaNYL citrate PF 100 MCG/2 ML VIAL ONE ×2 (15:42→17:54)
[2023-08-08] MEDS ORDERED: ONDANSETRON INJ 2 MG/ML 2 ML VIAL ONE (15:42)
[2023-08-08] MEDS ORDERED: LIDOCAINE 2% 2 ML VIAL/AMP(20MG/ML) INFIL ONE (15:42)
[2023-08-08] MEDS ORDERED: ROCURONIUM BROMIDE 10 MG/ML 5 ML VIAL IV ONE (15:42)
[2023-08-08] MEDS ORDERED: KETAMINE HCL INJ 50 MG/ML 10 ML VIAL ONE (15:42)
[2023-08-08] MEDS ORDERED: PROPOFOL IV EMULSION 10 MG/ML 20 ML VIAL IV ONE (15:42)
[2023-08-08] MEDS ORDERED: MIDAZOLAM HCL 1 MG/ML 2ML VIAL ONE (15:42)
[2023-08-08] MEDS ORDERED: DEXAMETHASONE SOD INJ 4 MG/ML VIAL ONE (15:42)
[2023-08-08] MEDS ORDERED: SODIUM CHLORIDE 0.9% PF INJ 10 ML VIAL ONE (15:43)
--- NOTE | 2023-08-08 15:59 | Anesthesiology Consultation ---
Date of Service August 08, 2023 Assessment & Plan Chart Review Chart Review: Acceptable Risk for Surgery Consults Requested none cardiology progress note from 08/08/23 noted ASA [id number] Proposed Anesthesia Anesthesia Type: General Risk / Benefits Reviewed With: PT / POA / Parent / Guardian, Accepts Plan and Informed Consent Obtained Additional Comments: RAFA harmon x1 03/21/23 w/o issue History Surgery Operation Date: 08/08/23 10:15 Proposed Procedures p Tooth Extraction # 7,8,9,10,19,22 - Sarmad Echevarria DMD Height/Weight Height: 5 ft 10 in Weight: 122.2 kg Allergies Allergy/AdvReac Type Severity Reaction Status Date / Time No Known Allergies Allergy Verified 03/21/23 06:08 Medications Home Medications Medication Instructions Recorded Confirmed Last Taken Vitamin D3 1 tab PO QAM 03/14/23 08/06/23 03/20/23 07:00 amlodipine 5 mg tablet 5 mg PO QAM 03/14/23 08/06/23 03/21/23 04:30 aspirin 81 mg capsule 81 mg PO QAM 03/14/23 08/06/23 03/20/23 07:00 atorvastatin 80 mg tablet 80 mg PO PM 03/14/23 08/06/23 03/20/23 19:00 calcium 600 mg capsule 600 mg PO QPM 03/14/23 08/06/23 03/20/23 07:00 chlorthalidone 50 mg tablet 50 mg PO QAM 03/14/23 08/06/23 03/20/23 07:00 loratadine 10 mg tablet (Claritin) 10 mg PO DAILY PRN Allergy Symptoms 03/14/23 08/06/23 03/20/23 20:00 losartan 50 mg tablet 50 mg PO BID 03/14/23 08/06/23 03/20/23 19:00 magnesium 250 mg tablet 500 mg PO DAILY 03/14/23 08/06/23 03/20/23 19:00 omeprazole 20 mg delayed 20 mg PO BID 03/14/23 08/06/23 03/21/23 04:30 release,disintegrating tablet potassium chloride 10 mEq 10 meq PO QAM 03/14/23 08/06/23 03/20/23 07:00 tablet,extended release rivaroxaban 20 mg tablet (Xarelto) 20 mg PO PM 03/14/23 08/06/23 03/17/23 19:00 zinc 1 tab PO QPM 03/14/23 08/06/23 03/20/23 19:00 Active Medications Generic Name Dose Route Start Last Admin Trade Name Freq PRN Reason Stop Dose Admin Amlodipine Besylate 5 mg 08/07/23 09:00 08/08/23 09:15 Amlodipine Besylate 5 Mg Tab PO 09/06/23 08:59 5 mg QAM ROLANDO Administration Aspirin 81 mg 08/07/23 09:00 08/08/23 09:15 Aspirin 81 Mg Ectab PO 09/06/23 08:59 81 mg QAM ROLANDO Administration Atorvastatin Calcium 80 mg 08/06/23 21:00 08/07/23 20:06 Atorvastatin 40 Mg Tab PO 09/05/23 20:59 80 mg PM ROLANDO Administration Fluticasone Propionate 2 sprays 08/06/23 21:00 08/08/23 09:14 Fluticasone Propionate Na Spr 16 Gm Btl NA 09/05/23 20:59 2 sprays BID ROLANDO Administration Furosemide 20 mg 08/06/23 15:30 08/08/23 08:25 Furosemide Inj 20 Mg/2 Ml Vial IV 09/05/23 15:29 20 mg DAILY ROLANDO Administration Hydroxyzine HCl 25 mg 08/07/23 12:21 08/07/23 20:05 Hydroxyzine Hcl 25 Mg Tab PO 09/06/23 12:20 25 mg Q6H PRN Administration Anxiety/Insomnia Heparin Sodium/Dextrose 25,000 units in 500 mls @ 0 mls/hr 08/06/23 14:15 08/08/23 09:20 Heparin Sodium/Dextrose IV 09/05/23 14:14 0 units/hr .Q0M ROLANDO 0 mls/hr Titration Protocol 0 UNITS/HR Ampicillin Sodium/Sulbactam 100 mls @ 100 mls/hr 08/06/23 18:00 08/08/23 13:30 Sodium 3,000 mg/ Sodium IV 08/16/23 17:59 Infused Chloride Q6H ROLANDO Infusion Lactobacillus Acidophilus 1,250 mg 08/07/23 09:00 08/08/23 09:15 Advanced Probiotic 625 Mg Capsule PO 09/06/23 08:59 1,250 mg DAILY ROLANDO Administration Losartan Potassium 50 mg 08/06/23 21:00 08/08/23 10:02 Losartan Potassium 50 Mg Tab PO 09/05/23 20:59 50 mg BID ROLANDO Administration Pantoprazole Sodium 40 mg 08/06/23 21:00 08/08/23 09:15 Pantoprazole 40 Mg Tab PO 09/05/23 20:59 40 mg BID ROLANDO Administration Protocol Potassium Chloride 10 meq 08/07/23 09:00 08/08/23 09:15 Potassium Chloride 10 Meq Tabcr PO 09/06/23 08:59 10 meq QAM ROLANDO Administration Sodium Chloride 2 sprays 08/06/23 21:00 08/08/23 09:16 Sodium Chloride 0.65% Na Soln 45 Ml ([place]) NA 09/05/23 20:59 2 sprays BID ROLANDO Administration Tramadol HCl 50 mg 08/07/23 17:35 08/07/23 23:32 Tramadol Hcl 50 Mg Tablet PO 09/06/23 17:34 50 mg Q4H PRN Administration Moderate Pain (Scale 4, 5, 6) NPO Date Last Intake of Fluids: 08/07/23 Time Last Intake of Fluids: 23:59 Date Last Intake of Solids: 08/07/23 Time Last Intake of Solids: 16:30 Past Medical History Medical History CAD (coronary artery disease) - Cath in 2020 revealed 100% occlusion of distal obtuse marginal branch of Cx that was felt to be embolic related to a fib (was not on AC at the time) rather than atherosclerosis. - PTCA performed without stent placement; mild nonbostructive atherosclerotic disease of RCA, LAD, and Cx treated medically in the interim per cardio records GERD (gastroesophageal reflux disease) History of anesthesia reaction woke up during EGD History of multiple concussions HTN (hypertension) CHF (congestive heart failure) Pacemaker placed 2021. Bradycardia. [employer]. Last check approx 1 mo ago. Atrial fibrillation Follows with Dr. Burns On Xarelto Hiatal hernia History of myocardial infarction 2020 Sleep apnea CPAP Exercise / Class Metabolic Activity II 4-5 Yardwork/Stairs/Walk up hill Past Surgical History Surgical History History of cardioversion History of arthroscopy of shoulder Rt History of colonoscopy History of esophagogastroduodenoscopy (EGD) History of cardiac cath 2020 -- CA -- no stents History of nasal polypectomy Past Anesthesia History No Hx of Anesthesia Complications and No Family Hx of Anesthesia Complications History of PONV No Hx of PONV and History of PONV Social History Smoking Status: Former smoker Do You Dip or Chew Tobacco: No (qiot 10 years ago) Hx Alcohol Use: Yes Alcohol type: hard liquor alcohol intake frequency: other Alcohol Intake Frequency Comment: pt stated drinker in the past 1/5 a day. had alcohol recently but not daily Hx Substance Use: No substance use type: does not use Physical Exam Vital Signs Last Vital Signs Temp 36.6 C 08/08/23 15:50 Pulse 64 08/08/23 15:50 Resp 18 08/08/23 15:50 BP 148/81 H 08/08/23 15:50 Pulse Ox 97 08/08/23 15:50 O2 Del Method Room Air 08/08/23 15:50 O2 Flow Rate 3 08/08/23 02:44 Constitutional + obese ENMT Mouth: + dental caries, + poor dentition, + chipped teeth (3 intact teeth, all the rest broken) and + loose teeth; no TMJ abnormality Thyromental Distance: > or= 3.5 Finger Breadths Mallampati Class: III Neck normal visual inspection, trachea midline and + facial hair; neck extension not limited Respiratory normal respiratory effort Auscultation: lungs clear to auscultation bilaterally Cardiovascular Rate/Rhythm: regular rate and regular rhythm Heart Sounds: no murmur Musculoskeletal Spine: normal cervical ROM Extremities: full ROM of extremities Neurologic moves all extremities Psychiatric Orientation: alert and oriented x 3 Testing Laboratory Results 08/08/23 05:28 08/08/23 05:28 PT 12.5 Seconds (9.0-12.0) H 08/06/23 11:11 INR 1.2 (0.9-1.1) H 08/06/23 11:11 APTT 34 Seconds (21-31) H 08/06/23 11:11 Hemoglobin A1c 6.1 % (4.5-5.6) H 08/07/23 06:22 Electrocardiogram Date: 08/07/23 Vpaced@55bpm Chest X-Ray Date: 08/06/23 Findings: + NAD and + cardiomegaly Echocardiogram Date: 08/07/23 EF: 55-60% Other Findings: + atrial enlargement (LAD) and + LVH (mild) Valvular Disease: + no significant valvular disease single lead in ventricle, mild AI/MR/TR
--- NOTE | 2023-08-08 16:09 | History & Physical Bridge Note ---
Date of Service August 08, 2023 History & Physical Bridge Note I have examined the patient, reviewed the History & Physical and in the interval since the performance of the History & Physical I have noted the following changes of clinical significance: no changes noted OK for planned surgery
[2023-08-08] MEDS ORDERED: ONDANSETRON INJ 2 MG/ML 2 ML VIAL IV PRN ×2 (16:10→18:06)
[2023-08-08] MEDS ORDERED: ATROPINE SULFATE 0.1 MG/ML 10ML SYR IV PRN ×2 (16:10→18:06)
[2023-08-08] MEDS ORDERED: MoRPHine SULFATE 10 MG/ML CARP/VIAL IV PRN (16:10)
[2023-08-08] MEDS ORDERED: MEPERIDINE HCL 25 MG/ML CARP/VIAL IV PRN (16:10)
[2023-08-08] MEDS ORDERED: fentaNYL citrate PF 100 MCG/2 ML VIAL IV PRN (16:10)
[2023-08-08] MEDS ORDERED: ePHEDrine sulfate 50 MG/ML AMP IV PRN ×2 (16:10→18:06)
[2023-08-08] MEDS: SURGICEL ABSORB HEMOSTAT 2IN X 14IN TOP ONE (16:52)
--- NOTE | 2023-08-08 17:17 | Post Operative Brief Note ---
PG Immediate Post Op with CF Date of Surgery August 08, 2023 Pre & Post Diagnosis Operation Date: 08/08/23 10:15 Pre-Op Diagnosis: Pain, swelling, drainage from infected upper anterior and lower left teeth Post-Op Diagnosis: Pain, swelling, drainage from infected upper anterior and lower left teeth I identified the patient and participated in the time-out.: Yes Procedure Operation Date: 08/08/23 10:15 Actual Procedures p Removal of infected teeth# 7,8,9,10,11,19,22(Left) - Sarmad Echevarria DMD Incision and drainage of the mucobuccal infection lower left and anterior subperiosteal spaces. Surgeon Sarmad Echevarria DMD Manager Gallery none Estimated Blood Loss 4 Findings Consistent with Post-Op Diagnosis grossly infected fracture/worn teeth with swelling and drainage Specimens Specimen Description: No specimen per surgeon Complications none
[2023-08-08] MEDS: CHLORHEXIDINE GLUCONATE 0.12% 480 ML MT ONE (17:27)
[2023-08-08] MEDS: BUPIVACAINE/EPINEPHRINE 0.5% 1:200,000 1.8 ML CARP ONE (17:27)
[2023-08-08] MEDS: fentaNYL citrate PF 100 MCG/2 ML VIAL IV PRN (17:55)
--- NOTE | 2023-08-08 18:28 | Anesthesiology Progress Note ---
Date of Service August 08, 2023 Anesthesia Post Procedure Vital Signs Vital Signs: Temp Pulse Pulse Resp BP Pulse Ox O2 Del Method 08/08/23 18:20 57 L 20 169/85 H 96 Nasal Cannula 08/08/23 18:10 60 20 164/83 H 96 Nasal Cannula 08/08/23 18:00 58 L 20 168/80 H 95 Nasal Cannula 08/08/23 17:50 55 L 20 177/82 H 98 Nasal Cannula 08/08/23 17:40 57 L 20 164/92 H 96 Nasal Cannula 08/08/23 17:30 75 20 152/76 H 96 Nasal Cannula 08/08/23 17:22 36.7 C 58 L 18 145/67 H 97 Nasal Cannula 08/08/23 15:50 36.6 C 64 18 148/81 H 97 Room Air 08/08/23 15:11 56 L 08/08/23 15:05 36.6 C 55 L 18 142/83 H 95 Room Air 08/08/23 11:00 36.1 C L 95 H 18 135/77 94 Room Air 08/08/23 08:00 50 L 08/08/23 07:37 36.7 C 54 L 18 136/80 98 Room Air 08/08/23 02:44 35.5 C L 51 L 18 127/72 98 Nasal Cannula 08/07/23 22:43 36.6 C 50 L 18 128/74 99 Nasal Cannula 08/07/23 19:12 36.9 C 57 L 18 149/81 H 99 Nasal Cannula O2 Flow Rate 08/08/23 18:20 2 08/08/23 18:10 2 08/08/23 18:00 2 08/08/23 17:50 2 08/08/23 17:40 2 08/08/23 17:30 2 08/08/23 17:22 2 08/08/23 15:50 08/08/23 15:11 08/08/23 15:05 08/08/23 11:00 08/08/23 08:00 08/08/23 07:37 08/08/23 02:44 3 08/07/23 22:43 3 08/07/23 19:12 3 Pain Intensity Chest: Pain Intensity: 4 Mouth: Pain Intensity: 7 Transfer of Care Handoff Completed per policy Notes Mental Status: alert / awake / arousable Patient Amnestic to Procedure: Yes Nausea / Vomiting: adequately controlled Pain: adequately controlled Airway Patency, RR, SpO2: stable & adequate BP & HR: stable & adequate Hydration State: stable & adequate Anesthetic Complications: no major complications apparent
--- NOTE | 2023-08-08 18:34 | Post Operative Brief Note ---
PG Immediate Post Op with CF Date of Surgery August 08, 2023 Pre & Post Diagnosis Operation Date: 08/08/23 10:15 Pre-Op Diagnosis: Pain, swelling, drainage from infected upper anterior and lower left teeth Post-Op Diagnosis: Pain, swelling, drainage from infected upper anterior and lower left teeth I identified the patient and participated in the time-out.: Yes Procedure Operation Date: 08/08/23 10:15 Actual Procedures p Removal of infected teeth# 7,8,9,10,11,19,22(Not Applicable) - Sarmad Echevarria DMD Surgeon Sarmad Echevarria, DEANDRA Brim Pouncing Machine Operator none Estimated Blood Loss 4 Findings Consistent with Post-Op Diagnosis grossly infected and carious teeth Removal of infected teeth# 7,8,9,10,11,19,22 Specimens Specimen Description: No specimen per surgeon Complications none Disposition Accompanied Patient To Recovery: Yes
[2023-08-09] MEDS: ACETAMINOPHEN 1,000 MG/100 ML VIAL IV PRN (00:59)
[2023-08-09] MEDS: LORazepam 2 MG in SYRINGE 1 ML IV PRN (01:18)
[2023-08-09 06:38] LABS: Hematocrit (blood only) 47.2 % (42.0-52.0); Hemoglobin 16.8 g/dl (14.0-18.0); Mean Corpuscular Hemoglobin 32.2 pg (25.0-34.0); Mean Corpuscular Hgb Conc 35.6 g/dL (32.0-36.0); Mean Corpuscular Volume 90.4 fL (80.0-100.0); Platelet Count 153 K/uL (130-400); RDW Standard Deviation 43.1 fL (36.4-46.3); Red Blood Count 5.22 M/uL (4.70-6.10); White Blood Count 9.79 K/ul (4.8-10.8)
[2023-08-09 06:49] LABS: Calcium 9.2 mg/dl (8.6-10.3); Est GFR (African American) 106.5 ml/min; Est GFR (Non-African American) 91.9 ml/min; Magnesium 1.9 mg/dl (1.7-2.4); Phosphorus 3.6 mg/dl (2.5-4.9); Potassium 3.3 mmol/L (3.5-5.1)
[2023-08-09] MEDS: POTASSIUM CHLORIDE CRTAB 20 MEQ TABCR PO STA (09:03)
[2023-08-09] MEDS: oxyCODONE HCL IR 5 MG TAB (IMMEDIATE RELEASE) PO STA (09:10)
[2023-08-09] MEDS: DOCUSATE SODIUM/SENNA 50/8.6MG TAB PO SCH (09:11)
[2023-08-09] MEDS: bisacodyL 10 MG SUPP PR STA (09:11)
[2023-08-09] MEDS: FUROSEMIDE 20 MG TAB PO SCH (09:34)
[2023-08-09] MEDS: SPIRONOLACTONE 12.5 MG TAB PO SCH (09:34)
--- NOTE | 2023-08-09 09:47 | Cardiology Progress Note ---
Date of Service August 09, 2023 Assessment & Plan (1) Preoperative cardiovascular examination: (2) Elevated troponin: (3) Diastolic congestive heart failure: (4) Hypertensive urgency: Plan Status post removal of infected teeth and abscess drainage. As per Oral Surgery and Hospitalist Service. Hypertensive urgency. Blood pressure remains uncontrolled. Pain is likely a contributing factor. Add carvedilol 3.125 mg twice per day. Continue losartan and amlodipine. See below. HFpEF. + Hypokalemia. Volume status improved. Potassium supplemented orally (3.3 mmol/L this AM). IV furosemide discontinued. Patient transitioned to oral furosemide and low-dose spironolactone. Chronic atrial fibrillation. Resume Xarelto when determined to be safe (? This evening). Tachy-Bradycardia Syndrome. Status post permanent pacemaker implantation. Lower rate notably set at 50 bpm. Mild coronary atherosclerosis. Asymptomatic. Continue aspirin and high intensity statin therapy. Chronic ventricular ectopy. LV function preserved. Add low-dose beta-dunia therapy as above. Please contact with any questions or concerns. Outpatient cardiology follow-up as scheduled with Dr. Burns, or as needed I spent a total of 40 minutes on the date of service in preparation, delivery, and documentation of the care provided to this patient excluding any time spent in the performance of separately billed services. This visit was a split-shared visit with the substantive portion of the medical decision making performed by the supervising ham stripper/billing provider. Admission and Anticipated Discharge Date Admission Date: August 06, 2023 Supervising Physician Co-Signing Physician Notes I have reviewed the advance practitioner's documentation, and I agree with, and take responsibility for the plan of care. Patient seen and examined at the bedside. Dental pain controlled. Mild edema improved today. Denies chest pain or shortness of breath. Telemetry reveals atrial fibrillation, demand ventricular pacing, heart rate ranging 50-70 bpm. Elevated blood pressure. PE: VSS. Hypertensive. Gen:NAD, AAO x3. Heart: Regular rhythm. No murmur. Lungs: Clear bilateral, no rales, rhonchi, wheeze. Extremities: Trace bilateral pedal and ankle edema. A/P: Chlorthalidone discontinued in favor of furosemide plus low-dose Aldactone. Carvedilol added today to improve blood pressure control. Continue other medications as ordered. Resume Xarelto today if bleeding risk deemed acceptable by the operating surgeon. Outpatient cardiology follow-up scheduled 08/11/23. I spent a total of 20 minutes on the date of service in preparation, delivery, and documentation of the care provided to this patient, excluding any time spent in the performance of separately billed services. Subjective Patient seen and examined. Chart, medications, and telemetry reviewed. "I do not feel bad except for the pain in my teeth and my head." + Mild lower extremity peripheral edema. No chest pain. No palpitations. No shortness of breath. No orthopnea. No PND. No dizziness. No subjective fevers or rigors. Telemetry: Atrial fibrillation with heart rates predominantly in the 50 to 70 bpm range. Review of Systems Review of Systems: Complete review of systems is otherwise as stated above, negative, or noncontributory. Physical Exam Physical Exam: General: A&Ox3. NAD. HENT: Normocephalic. Atraumatic. Eyes: PER. Conjunctiva pink, sclera clear. Neck: No JVD. Heart: Irregularly irregular, 74 bpm. No murmur. No rub. PMI is nondisplaced. Lungs: Clear to auscultation. Abdomen: +BS. Soft. Nontender. No masses or organomegaly. Extremities: Minimal pretibial edema. Mild varicosities. No clubbing. No cyanosis. Limited neurological examination is without focal deficits. Pulses: Posterior tibial=2/4. Results & Data Vital Signs (Past 12 Hours) Vital Signs Temp Pulse Resp BP Pulse Ox O2 Del Method O2 Flow Rate 08/09/23 07:32 36.7 C 63 16 183/84 H 99 Nasal Cannula 2 08/09/23 03:01 36.9 C 71 20 127/83 96 Room Air 08/08/23 23:00 36.5 C 74 18 196/118 H 94 Nasal Cannula 3.0 Laboratory Results CBC 08/09/23 Range/Units 05:39 WBC 9.79 (4.8-10.8) K/ul RBC 5.22 (4.70-6.10) M/uL Hgb 16.8 (14.0-18.0) g/dl Hct 47.2 (42.0-52.0) % Plt Count 153 (130-400) K/uL Comprehensive Metabolic Panel 08/09/23 Range/Units 05:39 Sodium 137 (136-145) mmol/L Potassium 3.3 L (3.5-5.1) mmol/L Chloride 98 (98-107) mmol/L Carbon Dioxide 29 (21-32) mmol/L BUN 16 (6-23) mg/dl Creatinine 0.84 (0.6-1.4) mg/dl Glucose 150 H (70-99(Fasting)) mg/dl Calcium 9.2 (8.6-10.3) mg/dl Intake and Output 08/08/23 08/09/23 08/09/23 22:59 06:59 14:59 Intake Total 900 / 1591.667 200 / 1591.667 100 / 100 Output Total 154 / 1204 850 / 1204 Balance 746 / 387.667 -650 / 387.667 100 / 100 Intake: IV 100 / 791.667 200 / 791.667 100 / 100 Acetaminophen 1,000 mg In 100 100 / 100 ml @ 400 mls/hr IV Q8H PRN Rx#: [id number] Ampicillin/Sulbactam Sod 3,000 100 / 300 100 / 300 100 / 100 mg In Sodium Chlor 0.9% Mini-B 100 ml @ 100 mls/hr IV Q6H ROLANDO Rx#:[id number] IV Perioperative 800 / 800 Output: Urine 150 / 1200 850 / 1200 Estimated Blood Loss Other: Weight 122.2 kg 122.3 kg Weight Measurement Method Built in [facility]
[2023-08-09] MEDS: carvediloL 3.125 MG TAB PO SCH (11:02)
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
--- NOTE | 2023-08-09 16:40 | Oral/Maxillofacial Progress Nt ---
Date of Service August 09, 2023 Post Op infection evaluation 24 hours The infected area has responded very well Swelling almost gone and the tissue is healing well No drainage is noted. Extractions healing well, well sutured and no bleeding. Infection has responded very well to the antibiotics, extractions and the I and D. I requested that the patient continue with massage, heat and wound care. At this time the area is well healed and responded well to treatment. RTC in 10-21 days OK for discharge as per hospital medicine Assessment & Plan Admission and Anticipated Discharge Date Admission Date: August 06, 2023 Results & Data Vital Signs (Past 12 Hours) Vital Signs Temp Pulse Pulse Pulse Pulse Resp BP 08/09/23 13:24 36.4 C L 63 64 63 17 177/81 H 08/09/23 11:38 36.4 C L 63 17 177/81 H 08/09/23 07:32 36.7 C 63 16 183/84 H 08/09/23 07:30 59 L 08/09/23 07:30 Pulse Ox O2 Del Method O2 Flow Rate 08/09/23 13:24 93 08/09/23 11:38 93 Room Air 08/09/23 07:32 99 Nasal Cannula 2 08/09/23 07:30 08/09/23 07:30 Room Air PG Care Time/CCT Total # of Minutes Spent Total Time Spent with Patient: Total time spent is greater than 50% in coordination of care (as documented) at patient's floor/unit and/or counseling patient: Coding Level of Care Code None
--- NOTE | 2023-08-09 18:36 | Operative Report ---
PG Post Operative Report Pre & Post Diagnosis Operation Date: 08/08/23 10:15 Pre-Op Diagnosis: Pain, swelling, drainage from infected upper anterior and lower left teeth Post-Op Diagnosis: Pain, swelling, drainage from infected upper anterior and lower left teeth I identified the patient and participated in the time-out.: Yes Procedure Operation Date: 08/08/23 10:15 Actual Procedures p Removal of infected teeth# 7,8,9,10,11,19,22(Not Applicable) - Sarmad Echevarria DMD Surgeon Sarmad Echevarria DMD Garment Sewer Hand none Estimated Blood Loss 4 Findings Consistent with Post-Op Diagnosis Specimens none Drains none Anesthesia Type General Complications none Disposition Accompanied Patient To Recovery: Yes Indications chronic pain and swelling --upper anterior and lower left Description of Procedure Operation Date: 08/08/23 13:00 p Incision and Drainage upper anterior facial and subperiosteal space abscess / Left masseter and submental space abscess / Removal of teeth 7,8,9,10,11,19,22 Sarmad Echevarria DMD [id number] x 7 for teeth 7,8,9,10,11,19,22 CPT 39566 CPT 67356 Once cleared for surgery general anesthesia was achieved, the eyes were protected by the anesthesia dept criteria. A time out was take for patient ID, antibiotics, equipment and position verification once all agreed the procedure began. Local anesthesia using Marcaine with a vasoconstrictor (1.8 ml per site) given into left inferior alveolar nerve and anterior maxilla A throat pack was placed after the oral cavity was irrigated with saline. Once a surgical level of anesthesia was obtained and the local anesthesia was given time for the blocks the surgery was started. I turned my attention to the infection which was located in the left upper left facial infraorbital and subperiosteal space abscess There was swelling associated with teeth 7,8,9,10,11,19,22 ( see CT scan report) Incision and Drainage left lower CPT 07299 Using a 15 blade an incision was made lateral to the alveolar ridge and medial to the vestibular fold in the area of greatest fluctuance on the lower left side associated with teeth 19 and 22 Once the incision was made a lot of pus extruded from the site. This drainage was cultured for anaerobic and aerobic bacteria. A curved hemostat was carefully placed into the infected space along the lateral side of the lower jaw and into the submandibular / submental space. Some further drainage was now allowed to escape. I palpated the cheek and submandibular area and no further drainage was expressed. The area was irrigated with at least 100 ml of NS solution. I now turned my attention to remove the # 19 and 22 teeth. Lower tooth #19 and 22 [id number] x 2 The full thick Muco-periosteal flap was made on the facial aspect from retromolar to site 22 . The flap was reflected to expose the the subperiosteal space the bone adjacent to #22 and 19. The rogues was used to remove bone, the tooth was removed with a 301 elevator and cowhorn dental forceps, the mental nerve was intact, there was a large amount of granulation tissue on the apex and some more pus that was expressed. The socket was curetted and then sutured to allow further drainage with a 2-0 chromic after surgical ritesh was placed into the sockets given that he is on Xarelto. Incision and Drainage upper anterior CPT 88222 Using a 15 blade an incision was made lateral to the alveolar ridge and medial to the anterior vestibular fold in the area of greatest fluctuance on the upper area associated with teeth 7-11 Once the incision was made a lot of pus extruded from the site. This drainage w as cultured for anaerobic and aerobic bacteria. A curved hemostat was carefully placed into the infected space along the upper jaw and into the infraorbital and subnasal area. Some further drainage was now allowed to escape. I palpated the upper lip and sides of the nose area and no further drainage was expressed. The area was irrigated with at least 100 ml of NS solution. I now turned my attention to remove the 7,8,9,10,11 grossly infected teeth that were completed covered by the infected and swollen tissues. Upper teeth 7,8,9,10,11 [id number] x 5 The full thick Muco-periosteal flap was made on the facial aspect from area # 6- # 12 . The flap was reflected to expose the the subperiosteal space the bone adjacent to grossly infected fractured teeth. The rongeurs was used to remove bone, the buried roots were removed with a 301 elevator and dental forceps, there was a large amount of granulation tissue on the apex and some more pus that was expressed. The 6 sockets were curetted and then sutured to allow further drainage with a 2- 0 chromic after surgical ritesh was placed into the sockets given that he is on Xarelto. When all the teeth were removed and the infected spaces drained I inspected the sites to insure all bleeding was controlled. I removed the throat pack and suctioned the throat. Bilateral gauze pressure dressings were placed. All instrument and sponge count was correct. The patient was allowed to awake from the anesthesia. Once full awake the anesthesia tube was removed and the patient was taken to the recovery room with all vital sign stable. The patient tolerated the surgery very well. I will follow the patient in my office, Rx and instructions will be given upon discharge. I attest to the content of the Intraoperative Record and any orders documented therein. Any exceptions are noted below.
== END 2023-08-09 14:34 | disposition home or self-care (01) | DRG 291 ==
LOC: ED 10:47 → SUATTDRO 12:23 → 2E 12:23
DX: I48.21 Permanent atrial fibrillation; Z95.810 Presence of automatic (implantable) cardiac defibrillator; E66.01 Morbid (severe) obesity due to excess calories; I25.2 Old myocardial infarction; Z68.35 Body mass index [BMI] 35.0-35.9, adult; K21.9 Gastro-esophageal reflux disease without esophagitis; F10.11 Alcohol abuse, in remission; I24.89 Other forms of acute ischemic heart disease; E78.5 Hyperlipidemia, unspecified; E11.65 Type 2 diabetes mellitus with hyperglycemia; D69.6 Thrombocytopenia, unspecified; R74.8 Abnormal levels of other serum enzymes; K04.7 Periapical abscess without sinus; Z87.891 Personal history of nicotine dependence; Z95.5 Presence of coronary angioplasty implant and graft; E83.42 Hypomagnesemia; I16.0 Hypertensive urgency; I50.33 Acute on chronic diastolic (congestive) heart failure; Z79.899 Other long term (current) drug therapy; K02.9 Dental caries, unspecified; K03.81 Cracked tooth; I11.0 Hypertensive heart disease with heart failure; I25.10 Atherosclerotic heart disease of native coronary artery without angina pectoris